=== PATIENT | male | born 1955 | race Caucasian/White ===

== ENCOUNTER 2018-06-30 17:45 | Inpatient (IN) | payer OTHER, MEDICARE ==
[~2018-06-30] VITALS: Ht 182.9 cm; Wt 155.6 kg
[~2018-06-30 17:45] MED LIST: ALBUTEROL2.5 MG/3 M; AMLODIPINE BESY10 M1; CLEOCIN HCL300 M1 PO; KEFLEX500 M1 PO; LISINOPRIL-HCT1 EACH PO; PROAIR HFA8.5 GM PO; PROBIOTIC1 EACH PO; SPIRIVA18 MCG INH; SULFAMETHOXAZO1 EAC1 PO; SYMBICORT 16010.2 GM INH
--- NOTE | 2018-06-30 18:17 | ED CARDIAC/CP/PALPITATIONS ---
History of Present Illness General Chief Complaint: Palpitations Stated Complaint: BIBA RAPID AFIB Source: patient Exam Limitations: no limitations Vital Signs & Intake/Output Vital Signs & Intake/Output Vital Signs Date Time Temp Pulse Resp B/P B/P Pulse O2 O2 Flow FiO2 Mean Ox Delivery Rate 07/01 2043 114 114/82 07/01 204 113 114/82 07/01 1854 Nasal 2.0L Cannula 07/01 1735 98.0 92 24 113/78 95 Nasal 2.0L Cannula 07/01 1601 95 Nasal 2.0L Cannula 07/01 1346 96.7 92 18 108/84 07/01 0948 96.7 92 18 108/84 96 Nasal 2.0L Cannula 07/01 0915 98.2 81 22 122/72 07/01 0915 98.2 81 22 122/72 07/01 0737 98.2 81 22 94 Nasal 2.0L Cannula 07/01 0733 98.2 81 22 94 Nasal 2.0L Cannula 07/01 0700 98.2 81 22 122/72 07/01 0541 94 Nasal 2.0L Cannula 07/01 0531 98.0 92 22 122/72 98 Nasal 2.0L Cannula 07/01 0359 97.0 89 22 114/79 96 Nasal 2.0L Cannula 07/01 0355 96 Nasal 2.0L Cannula 07/01 0300 97.0 89 22 114/79 96 Nasal 2.0L Cannula 06/30 2224 98.2 104 26 126/72 96 Nasal 2.5L Cannula 06/30 2221 96 Nasal 2.0L Cannula 06/30 2216 97.6 104 18 130/82 ED Intake and Output 07/01 0000 06/30 1200 Intake Total 400 Output Total 1225 Balance -825 Intake, Oral 400 Output, Urine 1225 Patient 340 lb Weight Weight Reported by Patient Measurement Method Allergies Coded Allergies: Penicillins (Intermediate, Hives 07/08/17) Triage Note: PT BIBA FROM URGENT CARE WITH NEW ONSET RAPID AFIB. HX OF COPD, C/O 1-2 MONTHS INCREASING SOB. USING ALBUTEROL NEB Q4-6HRS X 1-2 MONTHS WITH NO IMPROVEMENT IN S/S. DENIES C/P OR PALP Triage Nurses Notes Reviewed? yes Onset: Gradual Duration: week(s): Timing: recent history Quality/Severity: moderate HPI: 63yo male with hx of HTN, COPD sent in by urgent care for rapid A. fib. Patient was seeking evaluation today for worsening dyspnea on exertion. Patient has been using nebulizer treatments without relief of his symptoms. He also has difficulty laying flat at night due to his dyspnea. 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 He reports chronic swelling to lower extremities. He denies chest pain, dizziness, lightheadedness, abdominal pain, cough. (Savannah Ochoa) Reconcile Medications Albuterol Sulfate (Proair Hfa) 90 MCG HFA.AER.AD 2 PUFF PO Q4-6 PRN SHORTNESS OF BREATH (Reported) Albuterol Sulfate 2.5 MG/3 ML (0.083 %) VIAL.NEB 1 VIAL Q6 PRN LUNG (Reported ) Amlodipine Besylate 10 MG TABLET 1 TAB DAILY BLOOD PRESSURE (Reported) Budesonide/Formoterol Fumarate (Symbicort 160-4.5 Mcg Inhaler) 160 MCG-4.5 MCG/ ACTUATION HFA.AER.AD 2 PUF INH BID LUNG (Reported) Lisinopril/Hydrochlorothiazide (Lisinopril-Hctz 20-12.5 MG Tab) 20 MG-12.5 MG TABLET 2 TAB PO DAILY BP (Reported) Tiotropium [place] (Spiriva) 18 MCG CAP.W.DEV 1 CAP INH DAILY LUNG (Reported) (Ras Stahl DO) Past History Travel History Traveled to [place] past 21 day No Medical History Any Pertinent Medical History? 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 No (Savannah Ochoa) Review of Systems Review of Systems Constitutional: Reports: no symptoms. EENTM: Reports: no symptoms. Respiratory: Reports: see HPI. Cardiovascular: Reports: see HPI. GI: Reports: no symptoms. Genitourinary: Reports: no symptoms. Musculoskeletal: Reports: no symptoms. Skin: Reports: no symptoms. Neurological/Psychological: Reports: no symptoms. Hematologic/Endocrine: Reports: no symptoms. Immunologic/Allergic: Reports: no symptoms. All Other Systems: Reviewed and Negative (Candice BYRD,Savannah Bello) Physical Exam Physical Exam General Appearance: well developed/nourished, no apparent distress, alert, awake Head: atraumatic, normal appearance Eyes: Bilateral: normal appearance. Ears, Nose, Throat: hearing grossly normal Neck: normal inspection, supple, full range of motion Respiratory: normal breath sounds, no respiratory distress, lungs clear Cardiovascular: tachycardia, irregularly irregular Peripheral Pulses: 2+ radial (R), 2+ radial (L) Gastrointestinal: normal bowel sounds, soft, non-tender, no organomegaly Back: normal inspection, normal range of motion Extremities: 3+ pitting edema with deep purple skin discoloration to bilateral lower extremities Neurologic/Psych: awake, alert, oriented x 3 Skin: deep purple skin discoloration of lower extremities Core Measures ACS in differential dx? Yes CVA/TIA Diagnosis No Sepsis Present: No Sepsis Focused Exam Completed? No (Savannah Ochoa) Progress Differential Diagnosis: AMI, atrial fibrillation, CHF/pulm edema, myocarditis, pericarditis, pneumonia, PSVT, pulmonary embolism, unstable angina Plan of Care: Orders Procedure Date/time Status PARTIAL THROMBOPLASTIN TIME 07/02 0230 Active Regular Diet 07/01 B Active RT: Reevaluation 07/01 2024 Active RT: Evaluation 07/01 2024 Active Heparin Drip- AFIB/FLUTTER/PE/ 07/01 1936 Active PARTIAL THROMBOPLASTIN TIME 07/01 1830 Complete Change service to 07/01 1152 Active PARTIAL THROMBOPLASTIN TIME 07/01 0930 Complete TROPONIN LEVEL 07/01 0900 Complete EKG 07/01 0900 Active ECHOCARDIOGRAM 07/01 0800 Active Weight 07/01 0346 Active Teach/Educate 07/01 034 Active Pain Treatment and Response 07/01 034 Active Nutritional Intake, Monitor 07/01 034 Active Isolation 07/01 034 Active Patient Care Conference 07/01 034 Active TROPONIN LEVEL 07/01 0300 Complete MAGNESIUM 07/01 0300 Complete LIPID PANEL 07/01 0300 Complete GLYCOSYLATED HGB 07/01 0300 Complete D-DIMER 07/01 0300 Complete CBC WITHOUT DIFFERENTIAL 07/01 0300 Complete BASIC ELECTROLYTES PLUS BUN&CR 07/01 030 Complete EKG 07/01 0300 Active TRC EVALUATION (GEN) 07/01 0235 Active OXYGEN SETUP (GEN) 07/01 0235 Active Pathway - chart 07/01 0235 Active House Staff 07/01 0235 Active VTE Mechanical Prophylaxis 07/01 UNK Active Activity/Ambulation 07/01 UNK Active Patient Data 06/30 2301 Active Saline Lock 06/30 2215 Active Misc Message 06/30 2215 Active ED Holding Orders 06/30 2215 Active Admit to inpatient 06/30 2215 Active Vital Signs 06/30 2215 Active Code Status 06/30 2215 Active Intake & Output 06/30 192 Active Current Medications Sig/Jorge Start time Last Medication Dose Stop Time Status Admin Diltiazem HCl 60 MG Q8 07/01 2200 AC 07/01 (Cardizem) 2042 Apixaban 5 MG BID 07/01 2100 AC 07/01 (Eliquis) 204 Amlodipine Besylate 10 MG DAILY 07/01 0900 AC 07/01 (Norvasc) 0915 Budesonide/ 2 PUF BID 07/01 0900 AC 07/01 Formoterol Fumarate 0915 (Symbicort) Hydrochlorothiazide 25 MG DAILY 07/01 0900 AC 07/01 (Hydrodiuril) 0915 Lisinopril 40 MG DAILY 07/01 0900 AC 07/01 (Prinivil) 0915 Tiotropium [place] 1 PUF DAILY 07/01 0900 AC 07/01 (Spiriva) 0915 Acetaminophen 650 MG Q6P PRN 07/01 0245 AC (Tylenol) Albuterol Sulfate 2 PUF Q4-6 PRN 07/01 0215 AC (Ventolin) Albuterol Sulfate 3 ML Q6 PRN 07/01 0215 AC 07/01 (Proventil) 1601 Metoprolol Tartrate 25 MG Q8 06/30 2212 AC 07/01 (Lopressor) 2043 Laboratory Tests 07/01/18 1835: APTT 119 *H 07/01/18 0923: Troponin I < 0.01, APTT 39 H 07/01/18 0310: Anion Gap 14, Estimated GFR 47 L, BUN/Creatinine Ratio 16.0, Hemoglobin A1c 6.3 H, Magnesium 2.1, Troponin I 0.02, Triglycerides 109, Cholesterol 102, LDL Cholesterol, Calc 47 L, HDL Cholesterol 34 L, Cholesterol/HDL Ratio 3, D-Dimer High Sensitivty 430 H, CBC w Diff NO MAN DIFF REQ, RBC 3.98 L, MCV 86.2, MCH 28.5, MCHC 33.0, RDW 14.1, MPV 10.0, Gran % 71.8, Lymphocytes % 16.5 L, Monocytes % 6.3, Eosinophils % 3.7, Basophils % 1.7, Absolute Granulocytes 5.9, Absolute Lymphocytes 1.4, Absolute Monocytes 0.5, Absolute Eosinophils 0.3, Absolute Basophils 0.1 The patient was seen and evaluated by Dr. Stahl. Patient is in rapid atrial fibrillation with heart rate between 120-130. Will initiate Cardizem IV 10 mg and IV Lasix. Labs and workup are pending. Chest x-ray is stable. Labs are significant for BNP of 2890. Heart rate has improved to low 100's following medications. Awaiting cardiology return page. Dr. Riley spoke with Dr. James dasilva telemetry admission. Diagnostic Imaging: Viewed by Me: Radiology Read. Discussed w/RAD: Radiology Read. CXR Impression: PATIENT: EDA MEDINA PRESENT AGE: 63 PATIENT ACCOUNT NO: [id number] : 53 LOCATION: [facility] ORDERING PHYSICIAN: Savannah BYRD SERVICE DATE: 06/30/18 EXAM TYPE: RAD - XRY- PORTABLE CHEST XRAY EXAMINATION: CHEST 1 VIEW CLINICAL INFORMATION: Atrial fibrillation. COMPARISON: July 2015. TECHNIQUE: An AP view of the chest is provided. FINDINGS: The cardiac silhouette is prominence in the setting of low lung volumes. There is mild interstitial prominence throughout both lungs. There is bibasilar airspace disease. The osseous structures are stable. IMPRESSION: Limited examination secondary to patient positioning and low lung volumes. There is the appearance of an increase in the cardiac silhouette since the prior exam, though this may be accentuated due to technique and low lung volumes. There is nonspecific bibasilar airspace disease. DICTATED BY: Niall Gonzalez MD DATE/TIME DICTATED:06/30/181831 CUSTOMER ADVISOR:BEATRICE DATE/TIME TRANSCRIBED:1831 CONFIDENTIAL, DO NOT COPY WITHOUT APPROPRIATE AUTHORIZATION. < Electronically signed in Other Vendor System> SIGNED BY: Niall Gonzalez MD 06/30/181841 Initial ED EKG: atrial fibrillation @119bpm, LBBB, nonspecific ST changes Prior EKG: changed (Savannah Ochoa) Departure Departure Disposition: STILL A PATIENT Condition: Stable Clinical Impression Primary Impression: New onset a-fib Secondary Impressions: CHF (congestive heart failure) Referrals: Lauri Montano APRN (PCP/Family) Departure Forms: Customer Survey General Discharge Information Admission Note Spoke With: Destiny Ramirez MD Documentation of Exam: Documentation of any treatments & extenuating circumstances including Concerns Regarding Discharge (functional status, medication knowledge or non-compliance, living conditions, etc.) that warrant an admission rather than observation: [ Patient has new onset atrial fibrillation requiring rate control medications, possible IV heparin, cardiology consult, volume overload with likely CHF requiring IV diuresis, premature discharge medically unsafe] (Savannah Ochoa) PA/SILVER MINER Co-Sign Statement Statement: ED Attending supervision documentation- [X] I saw and evaluated the patient. I have also reviewed all the pertinent lab results and diagnostic results. I agree with the findings and the plan of care as documented in the PA's/SILVER MINER's documentation. [] I have reviewed the ED Record and agree with the PA's/SILVER MINER's documentation. [] Additions or exceptions (if any) to the PAs/SILVER MINER's note and plan are summarized below: [] Patient with severe lower extremity edema, new onset atrial fibrillation. I saw and personally examined the patient. No chest pain. IV Cardizem was given. (Ras Stahl DO) PA/SILVER MINER Co-Sign Statement Statement: ED Attending supervision documentation- x] I saw and evaluated the patient. I have also reviewed all the pertinent lab results and diagnostic results. I agree with the findings and the plan of care as documented in the PA's/SILVER MINER's documentation. 06/30/18, 22:10... pt with shortness of breath, new onset afib, merits monitoring , med management, cards eval Mary. [] I have reviewed the ED Record and agree with the PA's/SILVER MINER's documentation. [] Additions or exceptions (if any) to the PAs/SILVER MINER's note and plan are summarized below: [] (Osvaldo CALLEJAS,Zachariah Knox) Critical Care Note Critical Care Note Critical Care Time: non-applicable (Candice BYRD,Savannah Bello) Critical Care Note Critical Care Time: 30-74 min (Osvaldo CALLEJAS,Zachariah Knox)
[2018-06-30 18:20] LABS: ABSOLUTE BASOPHIL COUNT 0 /CUMM (0.0-0.2); ABSOLUTE EOSINOPHIL COUNT 0.2 /CUMM (0.0-0.7); ABSOLUTE GRANULOCYTE CT 7.2 /CUMM (1.4-6.5); ABSOLUTE LYMPH COUNT 1.6 /CUMM (1.2-3.4); ABSOLUTE MONOCYTE COUNT 0.5 /CUMM (0.10-0.60); BASOPHIL % 0.5 % (0.0-2.0); EOSINOPHIL % 1.8 % (0-5); GRANULOCYTE % 75.9 % (42.2-75.2); HEMATOCRIT 36.4 % (42-52); MEAN CORPUSCULAR HGB 27.7 PG (27.0-31.0); MEAN CORPUSCULAR HGB CONC 32.1 G/DL (33.0-37.0); MEAN CORPUSCULAR VOLUME 86.5 FL (80.0-94.0); MEAN PLATELET VOLUME 9.8 FL (7.4-10.4); PLATELET COUNT 230 /CUMM (130-400); RBC DISTRIBUTION WIDTH 14.5 % (11.5-14.5); RED BLOOD CELL CT 4.21 /CUMM (4.70-6.10); WHITE BLOOD CELL COUNT 9.5 /CUMM (4.8-10.8)
--- NOTE | 2018-06-30 18:42 | RADIOLOGY REPORT ---
EXAMINATION: CHEST 1 VIEW CLINICAL INFORMATION: Atrial fibrillation. COMPARISON: July 2015. TECHNIQUE: An AP view of the chest is provided. FINDINGS: The cardiac silhouette is prominence in the setting of low lung volumes. There is mild interstitial prominence throughout both lungs. There is bibasilar airspace disease. The osseous structures are stable. IMPRESSION: Limited examination secondary to patient positioning and low lung volumes. There is the appearance of an increase in the cardiac silhouette since the prior exam, though this may be accentuated due to technique and low lung volumes. There is nonspecific bibasilar airspace disease.
[2018-06-30 20:16] LABS: PT 12.4 SEC (9.4-12.5); PTT 29 SEC (25-37)
--- NOTE | 2018-07-01 00:56 | History & Physical ---
Shavon CALLEJASBasil 07/01/18 0055: General Information and HPI History of Present Illness: 63 year old man with past medical history of hypertension, asthma, COPD, obesity , renal mass, EtOH abuse, CKD, and TOM not on CPAP seen for evaluation of shortness of breath. Patient reported over the past two months having shortness of breath that has progressively worsened. He is unable to lay flat and has been sleeping in a recliner. Prior to this he could ambulate for a "while" without having to rest but now cannot walk more than 10 feet without being symptomatic. He went to an urgent care center for evaluation of this and was found to be tachycardic for which EMS was called and he was transferred to the [place] ED. Patient receive 10 mg of IV cardizem, 40 mg of IV lasix, duoneb, and started on oral metoprolol. He denied feeling any better despite these inteventions and is complaining of the same level of shortness of breath. Review of Systems He otherwise denies any headache, fever, chills, vision change, lightheadedness, dizziness, chest pain, palpitations, heartburn, cough, nausea, vomiting, diarrhea, constipation. Objective Vitals: Temp 97.2-98.2, HR 104-119, RR 18-16, BP 126-152/72-89, QyV039-92% on 2.5L Physical Exam -General: morbidly obese elderly man in no acute distress -HEENT: NCAT, PERRL, EOMI, anicteric sclera, MMM, nasal cannula in place -Neck: Supple, no JVD, trachea midline, no accessory respiratory muscle use -Cardio: Normal S1/S2, irregularly irregular, tachycardic -Pulm: Diminished bibasilar airflow without wheezing or rales -Abdomen: Soft, NT, ND, BS+ -Neuro: AAOx3, CN II-XII grossly intact -Ext: normal pulses, chronic venous stasis changes Labs / Imaging / Studies -CBC: WBC 9.5, Hgb 11.7, Hct 36.4, Plt 230 -BMP: Na 140, K 4.3, Cl 107, CO2 20, BUN 23, Cr 1.5, AG 12, Glu 114 -LFT: WNL -Misc: Mg 1.7, Trop I 0.01, BNP 2900, TSH 2.9, T4 1.39, INR 1.14 -Echo 05/13/14: LVEF 55% with mild/moderate LVH, moderate/severe Left atrial dilation -EKG: Atrial fibrillation with rapid ventricular response -CXR: * Limited examination secondary to patient positioning and low lung volumes. There is the appearance of an increase in the cardiac silhouette since the prior exam, though this may be accentuated due to technique and low lung volumes. There is nonspecific bibasilar airspace disease. Assessment 63 year old morbidly obese man with multiple medical problems with progressive shortness of breath found to be tachycardic at urgent care in new onset atrial fibrillation. Presently patient admits to being persistently short of breath despite several medications given in the ED. Vital signs are significant for a elevated heart rate. Physical exam demonstrates an irregularly irregular rhythm. Significant labs include creatinine 1.5, Mg 1.7, Troponin I 0.01, BNP 2900. EKG showed afib with RVR. CXR was technically difficult and limited. Clinically patient appears to be in new onset atrial fibrillation for an unknown amount of time; he very well may have been in and out over the past several months. The etiology may be structural secondary to his atrial dilation on past echocardiogram. He may have a tachycardia induced cardiomyopathy as the etiology of his shortness of breath. His CHADsVASc score is 2 for hypertension and age for which anticoagulation was started. Patient is being admitted to the telemetry floor for telemetry monitoring, rate control, anticoagulation, serial EKG/Troponin, echocardiogram, and cardiology consultation. Problem List -New Onset Atrial Fibrillation with Rapid Ventricular Response -Exertional shortness of breath, possibly tachycardia induced cardiomyopathy vs PE -Hypertension -Asthma -Morbid obesity -History of "renal mass" -History of EtOH dependence -CKD -TOM, not on CPAP Plan -Admit to telemetry -Telemetry monitoring -Supplemental oxygen, goal > 92%, taper as tolerated -Total respiratory care with Nebs PRN Q6H -CHADsVASc score:2 -Cardizem drip at 5 mL/h to heart rate <110 -Heparin drip -Metoprolol tartrate 25 mg p.o. every 8 hours -Continue home medications: Albuterol, amlodipine, symbicort, lisinopril, HCTZ, spiriva -Consult cardiology for atrial fibrillation -Check D-Dimer -Trend troponin / EKG until peak or three negative sets -Check Lipid panel, HbA1c -Pain control with acetaminophen -Regular diet -DVT PPx with heparin drip -FULL CODE Allergies/Medications Allergies: Coded Allergies: Penicillins (Intermediate, Hives 07/08/17) Home Med list Albuterol Sulfate (Proair Hfa) 90 MCG HFA.AER.AD 2 PUFF PO Q4-6 PRN SHORTNESS OF BREATH (Reported) Albuterol Sulfate 2.5 MG/3 ML (0.083 %) VIAL.NEB 1 VIAL Q6 PRN LUNG (Reported ) Amlodipine Besylate 10 MG TABLET 1 TAB DAILY BLOOD PRESSURE (Reported) Budesonide/Formoterol Fumarate (Symbicort 160-4.5 Mcg Inhaler) 160 MCG-4.5 MCG/ ACTUATION HFA.AER.AD 2 PUF INH BID LUNG (Reported) Lisinopril/Hydrochlorothiazide (Lisinopril-Hctz 20-12.5 MG Tab) 20 MG-12.5 MG TABLET 2 TAB PO DAILY BP (Reported) Tiotropium [place] (Spiriva) 18 MCG CAP.W.DEV 1 CAP INH DAILY LUNG (Reported) Past History Travel History Traveled to [place] past 21 day No Medical History Neurological: NONE EENT: NONE Cardiovascular: hypertension Respiratory: asthma, COPD Gastrointestinal: NONE Hepatic: NONE Renal: kidney mass Musculoskeletal: degen joint disease Psychiatric: NONE Endocrine: NONE Blood Disorders: NONE Cancer(s): 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 Exam & Diagnostic Data Last 24 Hrs of Vital Signs/I&O Vital Signs Date Time Temp Pulse Resp B/P B/P Pulse O2 O2 Flow FiO2 Mean Ox Delivery Rate 07/01 737 98.2 81 22 94 Nasal 2.0L Cannula 07/01 733 98.2 81 22 94 Nasal 2.0L Cannula 07/01 0541 94 Nasal 2.0L Cannula 07/01 531 98.0 92 22 122/72 98 Nasal 2.0L Cannula 07/01 359 97.0 89 22 114/79 96 Nasal 2.0L Cannula 07/01 355 96 Nasal 2.0L Cannula 07/01 0300 97.0 89 22 114/79 96 Nasal 2.0L Cannula 06/30 2224 98.2 104 26 126/72 96 Nasal 2.5L Cannula 06/30 2221 96 Nasal 2.0L Cannula 06/306 97.6 104 18 130/82 06/30 1856 97 Nasal 2.0L Cannula 06/30 1837 104 18 130/82 96 Nasal 2.0L Cannula 06/30 1834 97.6 119 18 152/89 06/30 1757 97.6 119 18 152/89 97 Nasal 2.0L Cannula Intake & Output 07/01 1600 07/01 0800 07/01 0000 Intake Total 400 Output Total 1150 1225 Balance -1150 -825 Intake, Oral 400 Output, Urine 1150 1225 Patient 154.221 kg 154.221 kg Weight Weight Reported by Patient Reported by Patient Measurement Method Assessment/Plan As Ranked By This Provider Problem List: 1. New onset a-fib Core Measures/Misc (08/18) Acute Coronary Syndrome ACS Diagnosis: No Congestive Heart Failure Congestive Heart Failure Diagnosis No Cerebrovascular Accident CVA/TIA Diagnosis: No VTE (View Protocol) VTE Risk Factors Age>40 No Mechanical VTE Prophylaxis d/t N/A MechProphylax Ordered No VTE Pharm Prophylaxis d/t NA PharmProphylax ordered Sepsis (View protocol) Sepsis Present: No If YES complete Sepsis Event Note If YES complete Sepsis Event Note Destiny Ramirez MD 07/01/182104: Core Measures/Misc (08/18) Sepsis (View protocol) If YES complete Sepsis Event Note If YES complete Sepsis Event Note Attending MD Review Statement Attending Statement Attending MD Statement: examined this patient, discuss w/resident/PA/SENIOR QUALITY TECHNICIAN, agreed w/resident/PA/SENIOR QUALITY TECHNICIAN Attending Assessment/Plan: This is a 63-year-old morbidly obese male admitted to the hospital with new onset atrial fibrillation with rapid ventricular response. He was placed on a Cardizem drip for rate control and will be transferred to telemetry for further monitoring. Given his elevated chads vas score he will be started on anticoagulation. A d-dimer was obtained but was appropriate when corrected for age therefore there is no indication to obtain a CTA of the chest. In addition patient will be placed on anticoagulation regardless. His exertional dyspnea is likely secondary to physical deconditioning morbid obesity and COPD. He will need outpatient follow-up with a steel division supervisor for a sleep study along with repeat pulmonary function testing. We will obtain an echocardiogram which will likely show evidence of pulmonary hypertension and possibly cardiomyopathy. Cardiology consultation will be placed in the morning.
[2018-07-01 03:19] LABS: ABSOLUTE BASOPHIL COUNT 0.1 /CUMM (0.0-0.2); ABSOLUTE EOSINOPHIL COUNT 0.3 /CUMM (0.0-0.7); ABSOLUTE GRANULOCYTE CT 5.9 /CUMM (1.4-6.5); ABSOLUTE LYMPH COUNT 1.4 /CUMM (1.2-3.4); ABSOLUTE MONOCYTE COUNT 0.5 /CUMM (0.10-0.60); BASOPHIL % 1.7 % (0.0-2.0); EOSINOPHIL % 3.7 % (0-5); GRANULOCYTE % 71.8 % (42.2-75.2); HEMATOCRIT 34.3 % (42-52); MEAN CORPUSCULAR HGB 28.5 PG (27.0-31.0); MEAN CORPUSCULAR VOLUME 86.2 FL (80.0-94.0); PLATELET COUNT 194 /CUMM (130-400); RBC DISTRIBUTION WIDTH 14.1 % (11.5-14.5); RED BLOOD CELL CT 3.98 /CUMM (4.70-6.10); WHITE BLOOD CELL COUNT 8.3 /CUMM (4.8-10.8)
[2018-07-01 03:59] VITALS: BP 114/79
--- NOTE | 2018-07-01 07:20 | PN- Housestaff ---
Subjective Follow-up For: Atrial fibrillation with RVR -newly diagnosed Complaints: SOB 1-2 months, BIBA for tachycardia Tele-Events Since Last Visit: In afib 90- 120 HR Subjective: patient continues to feel SOB, Dyspneic on lying flat on bed, no chest pain, no palpitations. No dizziness. C/o swelling of legs Review of Systems Constitutional: Reports: no symptoms, see HPI. EENTM: Reports: no symptoms. Cardiovascular: Reports: no symptoms. Respiratory: Reports: short of breath. Gastrointestinal: Reports: no symptoms. Genitourinary: Reports: no symptoms. Musculoskeletal: Reports: no symptoms. Skin: Reports: no symptoms. Neurological/Psychological: Reports: no symptoms. Hematologic/Endocrine: Reports: no symptoms. Immunologic/Allergic: Reports: no symptoms. Comments: History of Present Illness: 63 year old man with past medical history of hypertension, asthma, COPD, obesity , renal mass, EtOH abuse, CKD, and TOM not on CPAP seen for evaluation of shortness of breath. Patient reported over the past two months having shortness of breath that has progressively worsened. He is unable to lay flat and has been sleeping in a recliner. Prior to this he could ambulate for a "while" without having to rest but now cannot walk more than 10 feet without being symptomatic. He went to an urgent care center for evaluation of this and was found to be tachycardic for which EMS was called and he was transferred to the [place] ED. Patient receive 10 mg of IV cardizem, 40 mg of IV lasix, duoneb, and started on oral metoprolol. He denied feeling any better despite these inteventions and is complaining of the same level of shortness of breath. Objective Last 24 Hrs of Vital Signs/I&O Vital Signs Date Time Temp Pulse Resp B/P B/P Pulse O2 O2 Flow FiO2 Mean Ox Delivery Rate 07/01 948 96.7 92 18 108/84 96 Nasal 2.0L Cannula 07/01 915 98.2 81 22 122/72 07/01 0915 98.2 81 22 122/72 07/01 0737 98.2 81 22 94 Nasal 2.0L Cannula 07/01 0733 98.2 81 22 94 Nasal 2.0L Cannula 07/01 0700 98.2 81 22 122/72 07/01 0541 94 Nasal 2.0L Cannula 07/31 0531 98.0 92 22 122/72 98 Nasal 2.0L Cannula 07/01 0359 97.0 89 22 114/79 96 Nasal 2.0L Cannula 07/01 0355 96 Nasal 2.0L Cannula 07/01 0300 97.0 89 22 114/79 96 Nasal 2.0L Cannula 06/30 2224 98.2 104 26 126/72 96 Nasal 2.5L Cannula 06/30 2221 96 Nasal 2.0L Cannula 06/30 2216 97.6 104 18 130/82 06/30 1856 97 Nasal 2.0L Cannula 06/30 1837 104 18 130/82 96 Nasal 2.0L Cannula 06/30 1834 97.6 119 18 152/89 06/30 1757 97.6 119 18 152/89 97 Nasal 2.0L Cannula Intake & Output 07/01 1600 07/01 0800 07/01 0000 Intake Total 400 Output Total 1150 1225 Balance -1150 -825 Intake, Oral 400 Output, Urine 1150 1225 Patient 340 lb 340 lb Weight Weight Reported by Patient Reported by Patient Measurement Method Physical Exam General Appearance: Alert, Oriented X3, Cooperative Skin: No Rashes, No Breakdown Skin Temp/Moisture Exam: Cool/Dry HEENT: PERRLA, EOMI Neck: Supple, No JVD, No thryomegaly Lymphatic: Axillary nl, Cervical nl Cardiovascular: irregular, tachycardia Lungs: Clear to Auscultation Abdomen: Soft Neurological: Normal Speech, Strength at 5/5 X4 Ext, Normal Tone, Sensation Intact Current Medications: Current Medications Sig/Jorge Start time Last Medication Dose Route Stop Time Status Admin Acetaminophen 650 MG Q6P PRN 07/01 0245 AC PO Albuterol Sulfate 2 PUF Q4-6 PRN 07/01 0215 AC INH Albuterol Sulfate 3 ML Q6 PRN 07/01 0215 AC 07/01 INH 0541 Albuterol Sulfate 3 ML ONCE ONE 06/30 2215 DC 06/30 INH 06/30 2216 222 Amlodipine Besylate 10 MG DAILY 07/01 09 AC 07/01 PO 0915 Budesonide/ 2 PUF BID 07/01 09 AC 07/01 Formoterol Fumarate INH 0915 Diltiazem HCl 125 MG Q24H 07/01 0045 AC 07/01 Dextrose/Water 100 ML IV 0310 Diltiazem HCl 0 .STK-MED ONE 06/30 1831 DC .ROUTE Diltiazem HCl 10 MG ONCE ONE 06/30 1815 DC 06/30 IV 06/30 1816 183 Furosemide 0 .STK-MED ONE 06/30 1831 DC IV Furosemide 40 MG ONCE ONE 06/30 1815 DC 06/30 IV 06/30 181 183 Heparin Sodium/ 25,000 UNIT Q24H 07/01 0215 AC 07/01 Dextrose IV 0335 Dextrose/Water 500 ML Hydrochlorothiazide 25 MG DAILY 07/01 0900 AC 07/01 PO 0915 Ipratropium [place] 2.5 ML ONCE ONE 06/30 2215 DC 06/30 INH 06/30 2216 222 Lisinopril 40 MG DAILY 07/01 09 AC 07/01 PO 0915 Metoprolol Tartrate 0 .STK-MED ONE 06/30 2216 DC PO Metoprolol Tartrate 25 MG Q8 06/30 221 AC 07/01 PO 0700 Tiotropium [place] 1 PUF DAILY 07/01 09 AC 07/01 INH 0915 Last 24 Hrs of Lab/Russell Results Last 24 Hrs of Labs/Mics: Laboratory Tests 07/01/18 0923: Troponin I < 0.01, APTT 39 H 07/01/18309: Anion Gap 14, Estimated GFR 47 L, BUN/Creatinine Ratio 16.0, Hemoglobin A1c 6.3 H, Magnesium 2.1, Troponin I 0.02, Triglycerides 109, Cholesterol 102, LDL Cholesterol, Calc 47 L, HDL Cholesterol 34 L, Cholesterol/HDL Ratio 3, D-Dimer High Sensitivty 430 H, CBC w Diff NO MAN DIFF REQ, RBC 3.98 L, MCV 86.2, MCH 28.5, MCHC 33.0, RDW 14.1, MPV 10.0, Gran % 71.8, Lymphocytes % 16.5 L, Monocytes % 6.3, Eosinophils % 3.7, Basophils % 1.7, Absolute Granulocytes 5.9, Absolute Lymphocytes 1.4, Absolute Monocytes 0.5, Absolute Eosinophils 0.3, Absolute Basophils 0.1 06/30/181809: Anion Gap 12, Estimated GFR 47 L, BUN/Creatinine Ratio 15.3, Glucose 114 H, Calcium 9.0, Magnesium 1.9, Total Bilirubin 0.9, AST 34, ALT 48, Alkaline Phosphatase 62, Troponin I 0.01, Tmz-V-Aiboymmxbqs Pept 2890 H, Total Protein 6.8, Albumin 3.8, Globulin 3.0, Albumin/Globulin Ratio 1.3, TSH 2.900, Free T4 1.39, PT 12.4, INR 1.14, APTT 29, CBC w Diff NO MAN DIFF REQ, RBC 4.21 L, MCV 86.5, MCH 27.7, MCHC 32.1 L, RDW 14.5, MPV 9.8, Gran % 75.9 H, Lymphocytes % 16.3 L, Monocytes % 5.5, Eosinophils % 1.8, Basophils % 0.5, Absolute Granulocytes 7.2 H, Absolute Lymphocytes 1.6, Absolute Monocytes 0.5, Absolute Eosinophils 0.2, Absolute Basophils 0 Assessment/Plan Assessment: 63 year old man with past medical history of hypertension, asthma, COPD, obesity , renal mass, EtOH abuse, CKD, and TOM not on CPAP seen for evaluation of shortness of breath. Labs / Imaging / Studies -CBC: WBC 9.5, Hgb 11.7, Hct 36.4, Plt 230 -BMP: Na 140, K 4.3, Cl 107, CO2 20, BUN 23, Cr 1.5, AG 12, Glu 114 -LFT: WNL -Misc: Mg 1.7, Trop I 0.01, BNP 2900, TSH 2.9, T4 1.39, INR 1.14 -Echo 05/13/14: LVEF 55% with mild/moderate LVH, moderate/severe Left atrial dilation -EKG: Atrial fibrillation with rapid ventricular response -CXR: * Limited examination secondary to patient positioning and low lung volumes. There is the appearance of an increase in the cardiac silhouette since the prior exam, though this may be accentuated due to technique and low lung volumes. There is nonspecific bibasilar airspace disease. Problem List: 1. New onset a-fib 1)Newly diagnosed case of atrial fibrillation with rapid ventricular rate Patient admitted for telemetry monitoring Jimenez vasc score more than 2 patient started on heparin IV drip Cardizem 5 mL/h and metoprolol 25 mg po 8th hourly EKG within normal limits, troponin negative -Follow-up with cardiology 2)Dyspnea- Patient is a known case of asthma ,COPD -Chest x-ray suggestive of bibasilar airspace disease and the cardiac silhouette is enlarged -Patient is on total respiratory care and albuterol nebulization, Symbicort -Received 1 dose of ipratropium bromide inhalation -One dose of furosemide 40 mg IV given yesterday night 3) obstructive sleep apnea syndrome Patient was prescribed CPAP, but poor patient compliance due to ill fitting mask. 4) hypertension Treated with amlodipine, lisinopril, hydrochlorothiazide Continue the same 2. Dyspnea Pain Ratin Pain Location: n/a Pain Goal: Remain pain free Pain Plan: n/a Tomorrow's Labs & Rationales: none
[2018-07-01 09:41] LABS: PTT 39 SEC (25-37)
--- NOTE | 2018-07-01 11:21 | PN- Att Addend ---
Attending Addendum Attending Brief Note Patient seen and examined. 63-year-old male past medical history of COPD who used to follow-up with Dr. Nunez many years ago, obstructive sleep apnea has not been able to use the CPAP because of an ill fitting mask and hypertension. He is here with new onset rapid atrial fibrillation. We have him on IV Cardizem and IV heparin. Dr. Arce is scheduled to see him and echo is pending. He is requesting a consult with Dr. Nunez and I asked him to see the pt as well.
--- NOTE | 2018-07-01 19:09 | Cons- Cardiology ---
General Information and HPI Consulting Request Date of Consult: 07/01/18 Requested By: Shantal CALLEJAS,Tania Li History of Present Illness: Mr. Baum is a 63 year old male with history of hypertension, sleep apnea and COPD who presented to the ER for evaluation of severe shortness of breath accompanied by orthopnea. He has noted these symptoms for about six weeks and they have gradually progressed. He denies any cough, fever or chills. He does have leg swelling that tends to be chronic and his abdominal girth has increased. He otherwise denies chest pain, pressure, tigthness or lightheadedness. It should be noted that this patient was found in the ER to be in atrial fibrillation with slightly increased heart rate and he does have occasional palpitations although this is neither a new or prominent symptom. As far as the patient is aware he has never been in atrial fibrillation before. A prior echocardiogram from 2003 showed a normal EF of 55% with mild to moderate left atrial enlargement. Allergies/Medications Allergies: Coded Allergies: Penicillins (Intermediate, Hives 07/08/17) Home Med List: Albuterol Sulfate (Proair Hfa) 90 MCG HFA.AER.AD 2 PUFF PO Q4-6 PRN SHORTNESS OF BREATH (Reported) Albuterol Sulfate 2.5 MG/3 ML (0.083 %) VIAL.NEB 1 VIAL Q6 PRN LUNG (Reported ) Amlodipine Besylate 10 MG TABLET 1 TAB DAILY BLOOD PRESSURE (Reported) Budesonide/Formoterol Fumarate (Symbicort 160-4.5 Mcg Inhaler) 160 MCG-4.5 MCG/ ACTUATION HFA.AER.AD 2 PUF INH BID LUNG (Reported) Lisinopril/Hydrochlorothiazide (Lisinopril-Hctz 20-12.5 MG Tab) 20 MG-12.5 MG TABLET 2 TAB PO DAILY BP (Reported) Tiotropium [place] (Spiriva) 18 MCG CAP.W.DEV 1 CAP INH DAILY LUNG (Reported) Review of Systems Review of Systems: A review of systems is unremarkable. 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 Home Services at Home: None Smoking Status: Former Smoker ETOH Use: occasional use Exam & Diagnostic Data Vital Signs and I&O Vital Signs Date Time Temp Pulse Resp B/P B/P Pulse O2 O2 Flow FiO2 Mean Ox Delivery Rate 07/01 1854 Nasal 2.0L Cannula 07/01 1735 98.0 92 24 113/78 95 Nasal 2.0L Cannula 07/01 1601 95 Nasal 2.0L Cannula 07/01 1346 96.7 92 18 108/84 07/01 0948 96.7 92 18 108/84 96 Nasal 2.0L Cannula 07/01 0915 98.2 81 22 122/72 07/01 0915 98.2 81 22 122/72 07/01 0737 98.2 81 22 94 Nasal 2.0L Cannula 07/01 0733 98.2 81 22 94 Nasal 2.0L Cannula 07/01 0700 98.2 81 22 122/72 07/01 0541 94 Nasal 2.0L Cannula 07/01 0531 98.0 92 22 122/72 98 Nasal 2.0L Cannula 07/01 0359 97.0 89 22 114/79 96 Nasal 2.0L Cannula 07/01 0355 96 Nasal 2.0L Cannula 07/01 0300 97.0 89 22 114/79 96 Nasal 2.0L Cannula 06/30 2224 98.2 104 26 126/72 96 Nasal 2.5L Cannula 06/30 2221 96 Nasal 2.0L Cannula 06/30 2216 97.6 104 18 130/82 Intake & Output 07/01 1600 07/01 0807/01 0000 06/30 1600 06/30 0800 06/30 0000 Intake Total 400 Output Total 1150 1225 Balance -1150 -825 Intake, Oral 400 Output, Urine 1150 1225 Patient 340 lb 340 lb Weight Weight Reported by Patient Reported by Patient Measurement Method Physical Exam: General: WD/WN obses male in NAD; alert and oriented x 3 HEENT: NC/AT, PERRL, EOMI Neck: no JVD, no carotid bruit Heart: irregularly irregular without murmur Lungs: decreased air movement bilaterally, no crackles or wheezing Abdomen: soft, NT, +ve bowel sounds Extremities: 2+ leg edema with venous stasis changes Assessment/Plan Assessment/Plan * This patient has shortness of breath that is likely multifactorial and due to COPD, obesity, restrictive lung disease from his centripetal obesity and perhaps the new onset of atrial fibrillation. This atrial fibrillation is likely precipitated by either hypertension or increased RV pressures from his TOM. He should be on CPAP but does not like using it. His shortness of breath and atrial fibrillation may also be related to a pulmonary embolism especially in the light of his body habitus, inactivity and increased D-dimer. Evaluate for a PE by a CT angiogram. TFT's are normal. * Obtain an echocardiogram to assess for atrial enlargement and RV function as well as overall EF. * Begin Eliquis 5mg PO BID * Begin Cardizem 60mg TID for rate control. Consult Acknowledgment - Thank you for your consult request.
[2018-07-01 19:32] LABS: PTT 119 SEC (25-37)
[2018-07-02 06:40] VITALS: BP 120/76
--- NOTE | 2018-07-02 07:55 | PN- Housestaff ---
See Addendum Roman Gaston 07/02/18 0755: Subjective Follow-up For: Shortness of breath Complaints: a fib Tele-Events Since Last Visit: None Subjective: Patient is doing better on nasal cannula oxygen. denies any complaints. But admits to have shortness of breath upon ambulation. Denies any DVTs or clots. Wants to consider alternate options for sleep apnea management Review of Systems Constitutional: Reports: see HPI. Objective Last 24 Hrs of Vital Signs/I&O Vital Signs Date Time Temp Pulse Resp B/P B/P Pulse O2 O2 Flow FiO2 Mean Ox Delivery Rate 07/02 1449 97.9 119 20 134/70 95 Room Air 07/02 1442 125 134/70 07/02 1441 125 07/02 0901 120/76 07/02 0800 95 Nasal 2.0L Cannula 07/02 0755 94 Nasal 2.0L Cannula 07/02 0640 97.9 90 20 120/76 94 Nasal Cannula 07/02 0615 90 18 116/80 07/02 0556 90 18 116/80 07/02 0220 94 Nasal 2.0L Cannula 07/02 0000 97 Nasal 2.0L Cannula 07/01 2145 Nasal 2.0L Cannula 07/01 2043 114 114/82 07/01 2042 113 114/82 07/01 1854 Nasal 2.0L Cannula 07/01 1735 98.0 92 24 113/78 95 Nasal 2.0L Cannula Intake & Output 07/02 1600 07/02 0800 07/02 0000 Intake Total 480 120 150 Output Total Balance 480 120 150 Intake, Oral 480 120 150 Patient 351 lb Weight Weight Bed scale Measurement Method Physical Exam General Appearance: Alert, Oriented X3, Cooperative, No Acute Distress Cardiovascular: Regular Rate, No Murmurs Lungs: universally decreased breath sounds Abdomen: Normal Bowel Sounds, Soft, No Tenderness, No Hepatospenomegaly, No Masses, distended Neurological: Normal Speech, Strength at 5/5 X4 Ext, Normal Tone, Sensation Intact Extremities: LE edema Current Medications: Current Medications Sig/Jorge Start time Last Medication Dose Route Stop Time Status Admin Acetaminophen 650 MG Q6P PRN 07/01 0245 AC PO Albuterol Sulfate 3 ML TID 07/02 0900 AC 07/02 INH 0755 Albuterol Sulfate 2 PUF Q4-6 PRN 07/01 0215 AC INH Albuterol Sulfate 3 ML Q6 PRN 07/01 0215 AC 07/01 INH 1601 Amlodipine Besylate 10 MG DAILY 07/01 0900 AC 07/02 PO 0901 Apixaban 5 MG BID 07/01 2100 AC 07/02 PO 0900 Budesonide/ 2 PUF BID 07/01 0900 AC 07/02 Formoterol Fumarate INH 0902 Diltiazem HCl 60 MG Q8 07/01 2200 AC 07/02 PO 1442 Diltiazem HCl 125 MG Q24H 07/01 0045 DC 07/01 Dextrose/Water 100 ML IV 0310 Heparin Sodium/ 25,000 UNIT Q24H 07/01 0215 DC 07/01 Dextrose IV 0335 Dextrose/Water 500 ML Hydrochlorothiazide 25 MG DAILY 07/01 0900 AC 07/02 PO 0901 Lisinopril 40 MG DAILY 07/01 0900 AC 07/02 PO 0901 Metoprolol Tartrate 25 MG Q8 06/30 2212 AC 07/02 PO 1441 Tiotropium [place] 1 PUF DAILY 07/01 0900 AC 07/02 INH 0903 Last 24 Hrs of Lab/Russell Results Last 24 Hrs of Labs/Mics: Laboratory Tests 07/01/18 1835: APTT 119 *H Assessment/Plan Assessment: 63-year-old male PM Hx hypertension, COPD, asthma, TOM, stage II CKD, brought in by ambulance for increased shortness of breath, was diagnosed with atrial fibrillation and started on anticoagulation therapy for Jimenez vasc more than 2, Problem List: 1. Dyspnea Patient had dyspnea for the past 1 month and came in for increased shortness of breath. -Give a history of sleep apnea for which he was treated with CPAP, but noncompliant due to ill fitting mask -Pulmonology was consulted -Is currently on nasal cannula 2 L oxygen -Suspected of pulmonary embolism due to high d-dimer, morbid obesity, inactivity , and pulmonology consult advised CTA, echocardiogram - 2. New onset a-fib Patient was started on Cardizem an IV heparin and metoprolol 25 mg Continue medications for hypertension IV heparin was discontinued later on patient was switched to Eliquis Continue other medications Follow-up VQ scan and echo reports Pain Ratin Pain Location: None Pain Goal: Remain pain free Pain Plan: None Tomorrow's Labs & Rationales: None DVT/Prophylaxis: pharmacological Tania Murguia MD 07/02/18 1051: Attending MD Review Statement Attending Statement Attending MD Statement: examined this patient, discuss w/resident/PA/WORKERS COMPENSATION [place], agreed w/resident/PA/WORKERS COMPENSATION [place], reviewed EMR data (avail), discussed with nursing, discussed with case mgmt Attending Assessment/Plan: Appreciate pulmonary and cardiology follow-up. 63-year-old male past medical history of COPD obstructive sleep apnea and morbid obesity here with new onset atrial fibrillation. We have him on by mouth Cardizem and Eliquis. In view of the CKD with a GFR of 47 we are getting a VQ scan to rule out a PE and will follow up on results of the echo.
--- NOTE | 2018-07-02 08:36 | Cons- Pulmonary ---
General Information and HPI Consulting Request Date of Consult: 07/02/18 Requested By: Eugenia Reason for Consult: Asthma and sleep apnea History of Present Illness: Patient is 63-year-old with history of asthma treated with Spiriva Symbicort and sleep apnea is admitted with increasing shortness breath and found to be in atrial fibrillation associated with elevated BNP. Patient was last seen several years ago and found to have mild obstructive lung disease. He was found to have sleep apnea but is a nonadherent with nasal CPAP. A cardiac ultrasound and 2014 showed no evidence of pulmonary hypertension. He's had significant weight gain and increased lower extremity edema. Allergies/Medications Allergies: Coded Allergies: Penicillins (Intermediate, Hives 07/08/17) Home Med List: Albuterol Sulfate (Proair Hfa) 90 MCG HFA.AER.AD 2 PUFF PO Q4-6 PRN SHORTNESS OF BREATH (Reported) Albuterol Sulfate 2.5 MG/3 ML (0.083 %) VIAL.NEB 1 VIAL Q6 PRN LUNG (Reported ) Amlodipine Besylate 10 MG TABLET 1 TAB DAILY BLOOD PRESSURE (Reported) Budesonide/Formoterol Fumarate (Symbicort 160-4.5 Mcg Inhaler) 160 MCG-4.5 MCG/ ACTUATION HFA.AER.AD 2 PUF INH BID LUNG (Reported) Lisinopril/Hydrochlorothiazide (Lisinopril-Hctz 20-12.5 MG Tab) 20 MG-12.5 MG TABLET 2 TAB PO DAILY BP (Reported) Tiotropium [place] (Spiriva) 18 MCG CAP.W.DEV 1 CAP INH DAILY LUNG (Reported) Review of Systems Review of Systems Constitutional: Denies: chills, fever. Cardiovascular: Reports: edema, orthopena. Denies: chest pain. Respiratory: Reports: short of breath. Denies: cough, hemoptysis, sputum production, wheezing. GI: Denies: abdominal pain, diarrhea, melena. 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 Home Services at Home: None Smoking Status: Former Smoker ETOH Use: occasional use Exam & Diagnostic Data Last 24 Hrs of Vital Signs/I&O Vital Signs Date Time Temp Pulse Resp B/P B/P Pulse O2 O2 Flow FiO2 Mean Ox Delivery Rate 07/02 0640 97.9 90 20 120/76 94 Nasal Cannula 07/02 0615 90 18 116/80 07/02 0556 90 18 116/80 07/02 0220 94 Nasal 2.0L Cannula 07/02 0000 97 Nasal 2.0L Cannula 07/01 2145 Nasal 2.0L Cannula 07/013 114 114/82 07/01 2042 113 114/82 07/01 1854 Nasal 2.0L Cannula 07/01 1735 98.0 92 24 113/78 95 Nasal 2.0L Cannula 07/01 1601 95 Nasal 2.0L Cannula 07/01 1346 96.7 92 18 108/84 07/01 0948 96.7 92 18 108/84 96 Nasal 2.0L Cannula 07/01 0915 98.2 81 22 122/72 07/01 0915 98.2 81 22 122/72 Intake & Output 07/02 1600 07/02 0800 07/02 0000 Intake Total 120 150 Output Total Balance 120 150 Intake, Oral 120 150 Patient 351 lb Weight Weight Bed scale Measurement Method Oxygen saturation on 2 L 94% exam of his chest shows clear lung gaitan are no wheezes cardiac exam shows irregular rhythm abdomen is soft nontender obese extremities have chronic brawny edema Last 48 Hrs of Labs/Russell: Laboratory Tests 07/01/18 1835: APTT 119 *H 07/01/18 0923: Troponin I < 0.01, APTT 39 H 07/01/18 0310: Anion Gap 14, Estimated GFR 47 L, BUN/Creatinine Ratio 16.0, Hemoglobin A1c 6.3 H, Magnesium 2.1, Troponin I 0.02, Triglycerides 109, Cholesterol 102, LDL Cholesterol, Calc 47 L, HDL Cholesterol 34 L, Cholesterol/HDL Ratio 3, D-Dimer High Sensitivty 430 H, CBC w Diff NO MAN DIFF REQ, RBC 3.98 L, MCV 86.2, MCH 28.5, MCHC 33.0, RDW 14.1, MPV 10.0, Gran % 71.8, Lymphocytes % 16.5 L, Monocytes % 6.3, Eosinophils % 3.7, Basophils % 1.7, Absolute Granulocytes 5.9, Absolute Lymphocytes 1.4, Absolute Monocytes 0.5, Absolute Eosinophils 0.3, Absolute Basophils 0.1 06/30/18 1810: Anion Gap 12, Estimated GFR 47 L, BUN/Creatinine Ratio 15.3, Glucose 114 H, Calcium 9.0, Magnesium 1.9, Total Bilirubin 0.9, AST 34, ALT 48, Alkaline Phosphatase 62, Troponin I 0.01, Zum-U-Gkboprfgjso Pept 2890 H, Total Protein 6.8, Albumin 3.8, Globulin 3.0, Albumin/Globulin Ratio 1.3, TSH 2.900, Free T4 1.39, PT 12.4, INR 1.14, APTT 29, CBC w Diff NO MAN DIFF REQ, RBC 4.21 L, MCV 86.5, MCH 27.7, MCHC 32.1 L, RDW 14.5, MPV 9.8, Gran % 75.9 H, Lymphocytes % 16.3 L, Monocytes % 5.5, Eosinophils % 1.8, Basophils % 0.5, Absolute Granulocytes 7.2 H, Absolute Lymphocytes 1.6, Absolute Monocytes 0.5, Absolute Eosinophils 0.2, Absolute Basophils 0 Assessment/Plan Impression/Plan: 63-year-old with history of asthma mild airflow obstruction on pulmonary function testing and untreated sleep apnea admitted with increased shortness breath found to be in atrial fibrillation associated with elevated BNP. There is no evidence of bronchospasm. Patient has chronic kidney disease and would be hesitant about administrating dye for a CTA with concern over precipitating worsening renal failure Recommendations: Mild negative fluid balance monitoring his renal function. Repeat cardiac ultrasound. Arrangements will be made for outpatient pulmonary function tests repeat sleep study and treatment for sleep apnea. If concern persists regarding possible pulmonary emboli ventilation perfusion scan would be preferable in view of chronic kidney disease. Continue present bronchodilator regimen Consult Acknowledgment - Thank you for your consult request.
--- NOTE | 2018-07-02 10:55 | ECHOCARDIOGRAM REPORT ---
EDA MEDINA Age: 63 : 1955 Gender: M Exam Date: 07/01/2018 16:56 Exam Location: ER Ht (in): 72 Wt (lb): 340 BSA: 2.87 BP: 122 / 70 Ordering Physician: Basil Sands MD Referring Physician: Alejo Arce MD, PhD Technologist: Diann Manriquez [facility] Room Number: [id number] Indications: Afib/flutter Rhythm: Atrial fibrillation Technical Quality: good FINDINGS Left Ventricle Normal left ventricular size with moderate left ventricular hypertrophy. Moderate to severely decreased systolic function with severe anterior, apical septal and inferoseptal hypokinesis. The ejection fraction is visually estimated at 25%. Right Ventricle The right ventricle is normal in size and function. Right Atrium The right atrium is mildly enlarged. Left Atrium The left atrium is markedly enlarged. The interatrial septum is intact. Mitral Valve The mitral valve is normal in structure and function. There is mild to moderate mitral regurgitation. Aortic Valve Mildly thickened and sclerotic aortic valve with mild stenosis. There is no aortic regurgitation. Tricuspid Valve The tricuspid valve is normal in structure and function. There is mild tricuspid regurgitation. Pulmonary artery systolic pressure is mildly elevated to 40mmHg. Pulmonic Valve Structurally normal pulmonic valve. There is no pulmonic regurgitation. Pericardium Normal pericardium with small effusion. No pleural effusion. Great Vessels Normal aortic root dimension. The aortic arch and great vessels are well seen and are normal. CONCLUSIONS 1. Moderate to severely decreased EF of 25% with regional wall motion abnormalities as described above. 2. Moderate left ventricular hypertrophy. 3. Mild right atrial enlargement. Markedly enlarged left atrium. 4. Mild to moderate mitral regurgitation. 5. Mild tricuspid regurgitation. 6. Mild aortic stenosis. 7. Mild pulmonary hypertension. 8. Small pericardial effusion. Alejo Arce M.D. (Electronically Signed) Final Date: 02 July 2018 10:53 MEASUREMENTS (Male / Female) Normal Values 2D ECHO LV Diastolic Diameter PLAX 5.9 cm 4.2 - 5.9 / 3.9 - 5.3 cm LV Systolic Diameter PLAX 4.5 cm 2.1 - 4.0 cm LV Fractional Shortening PLAX 23.7 % 25 - 46 % LV Ejection Fraction 2D Teich 46.6 % IVS Diastolic Thickness 1.6 cm LVPW Diastolic Thickness 1.6 cm LV Relative Wall Thickness 0.5 RV Internal Dim ED PLAX 3.8 cm 1.9 - 3.8 cm LVOT Diameter 1.9 cm Aortic Root Diameter 3.2 cm LA Systolic Diameter LX 5.2 cm 3.0 - 4.0 / 2.7 - 3.8 cm LV Ejection Fraction MOD BP 36.8 % >= 55 % LV Diastolic Length 4C 8.6 cm 6.9 - 10.3 cm LV Diastolic Area 4C 37.0 cm LV Diastolic Volume MOD 4C 132.0 cm LV Ejection Fraction MOD 4C 37.9 % LV Stroke Volume MOD 4C 50.0 cm LV Systolic Length 4C 8.1 cm LV Systolic Area 4C 28.0 cm LV Systolic Volume MOD 4C 82.0 cm LV Ejection Fraction MOD 2C 37.6 % LV Diastolic Volume 4C AL 135.9 cm 85 - 139 / 69 - 109 cm LV Systolic Volume 4C AL 82.1 cm LV Ejection Fraction 4C AL 39.6 % LV Stroke Volume 4C AL 53.9 cm LV Ejection Fraction 2C AL 38.7 % LA Volume 110.0 cm 18 - 58 / 22 - 52 cm Ascending Aorta Diameter 3.6 cm DOPPLER AV Peak Velocity 152.0 cm/s AV Peak Gradient 9.2 mmHg AV Mean Velocity 103.0 cm/s AV Mean Gradient 5.0 mmHg AV Velocity Time Integral 27.0 cm LVOT Peak Velocity 97.8 cm/s LVOT Peak Gradient 3.8 mmHg LVOT Mean Velocity 63.3 cm/s LVOT Mean Gradient 2.0 mmHg LVOT Velocity Time Integral 17.1 cm LVOT Stroke Volume 48.5 cm AV Area Cont Eq vti 1.8 cm AV Area Cont Eq pk 1.8 cm MV Peak Velocity 145.0 cm/s MV Peak Gradient 8.4 mmHg MV Mean Velocity 65.7 cm/s MV Mean Gradient 2.0 mmHg Mitral E Point Velocity 130.7 cm/s MV PHT Velocity 149.0 cm/s MV Deceleration [place] 529.0 cm/s MV Pressure Half Time 84.5 ms MV Area PHT 2.6 cm MV Deceleration Time 120.5 ms TR Peak Velocity 273.0 cm/s TR Peak Gradient 29.8 mmHg Right Atrial Pressure 10.0 mmHg Pulmonary Artery Systolic Pressure 39.8 mmHg Right Ventricular Systolic Pressure 39.8 mmHg PV Peak Velocity 105.0 cm/s PV Peak Gradient 4.4 mmHg PV Mean Velocity 74.6 cm/s PV Mean Gradient 3.0 mmHg PV Velocity Time Integral 21.8 cm LV E' Lateral Velocity 9.5 cm/s Mitral E to LV E' Lateral Ratio 13.8 LV E' Septal Velocity 5.6 cm/s Mitral E to LV E' Septal Ratio 23.5
[2018-07-02 14:49] VITALS: BP 134/70
--- NOTE | 2018-07-02 16:32 | NUCLEAR MEDICINE REPORT ---
EXAMINATION: NM LUNG SCAN V/Q CLINICAL INFORMATION: Shortness of breath, edema. COMPARISON: Chest x-ray 06/30/2018. TECHNIQUE: 8.9 mCi xenon-133 aerosol and technetium MAA 3.8 mCi intravenous. Imaging in various obliquities over the lung gaitan. FINDINGS: The ventilation images are within normal limits. Wash-in and washout are unremarkable. The perfusion imaging is felt to match the ventilation imaging. No convincing evidence for a mismatch here. Mildly heterogeneous perfusion and probable enlarged heart which is reviewed on the chest film. IMPRESSION: Low probability for pulmonary embolism. Chance of PE is 20% or less. Probable cardiomegaly.
--- NOTE | 2018-07-02 17:45 | PN- Cardiology ---
Subjective Subjective: * Breathing is improved but not yet ideal. * The patient's echo shows a low EF. * atrial fibrillation with increased heart rate. Objective Vital Signs and I&Os Vital Signs Date Time Temp Pulse Resp B/P B/P Pulse O2 O2 Flow FiO2 Mean Ox Delivery Rate 07/02 1701 92 Room Air Room Air 07/02 1449 97.9 119 20 134/70 95 Room Air 07/02 1442 125 134/70 07/02 1441 125 / 0901 120/76 07/02 0800 95 Nasal 2.0L Cannula 07/02 0755 94 Nasal 2.0L Cannula 07/02 0640 97.9 90 20 120/76 94 Nasal Cannula 07/02 0615 90 18 116/80 07/02 0556 90 18 116/80 07/02 0220 94 Nasal 2.0L Cannula 07/02 0000 97 Nasal 2.0L Cannula 07/01 2145 Nasal 2.0L Cannula 07/01 2043 114 114/82 07/01 2042 113 114/82 07/01 1854 Nasal 2.0L Cannula Intake & Output 07/02 1600 07/02 0800 07/02 0000 07/01 1600 07/01 0800 07/01 0000 Intake Total 480 120 150 400 Output Total 1150 1225 Balance 480 120 150 -1150 -825 Intake, Oral 480 120 150 400 Output, Urine 1150 1225 Patient 351 lb 340 lb 340 lb Weight Weight Bed scale Reported by Patient Reported by Patient Measurement Method Physical Exam: General: WD/WN obses male in NAD; alert and oriented x 3 HEENT: NC/AT, PERRL, EOMI Neck: no JVD, no carotid bruit Heart: irregularly irregular without murmur Lungs: decreased air movement bilaterally, no crackles or wheezing Abdomen: soft, NT, +ve bowel sounds Extremities: 2+ leg edema with venous stasis changes Assessment/Plan Assessment/Plan * This patient has shortness of breath that is likely multifactorial and due to COPD, obesity, restrictive lung disease from his centripetal obesity, atrial fibrillation and a low EF. He has evidence of a cardiomyopathy that may be related to tachycardia from atrial fibrillation although ischemia needs to be ruled out. This atrial fibrillation is likely precipitated by either hypertension or increased RV pressures from his TOM. He should be on CPAP but does not like using it. * Continue Eliquis 5mg PO BID * Discontinue HCTZ and begin Lasix 20mg daily. Increase Cardizem to 120mg BID for rate control. Continue telemetry? Yes
[2018-07-02 22:13] VITALS: BP 136/74
[2018-07-03 05:49] VITALS: BP 104/84
[2018-07-03 06:50] VITALS: BP 118/70
--- NOTE | 2018-07-03 07:13 | PN- Housestaff ---
Roman Gaston 07/03/18 0713: Subjective Follow-up For: SOB Complaints: pain scale (0-10) (SOB) Subjective: Patient continues to feel short of breath especially on ambulation. He said that his saturations are above 95% without oxygen during ambulation but complains of short of breath during ambulation. increased use of nebulization. Patoient is off oxygen since 11 am yesterday. Review of Systems Constitutional: Reports: see HPI. Objective Last 24 Hrs of Vital Signs/I&O Vital Signs Date Time Temp Pulse Resp B/P B/P Pulse O2 O2 Flow FiO2 Mean Ox Delivery Rate 07/03 0814 77 138/64 07/03 0814 77 138/64 07/03 0650 98.3 80 20 118/70 95 Room Air 07/03 0550 83 104/84 07/03 0549 83 104/84 07/03 0242 94 Room Air 07/03 0000 Room Air 07/02 2213 98.3 88 20 136/74 97 Room Air 07/02 2202 94 Room Air Room Air 07/02 2129 98 112/80 07/02 1701 92 Room Air Room Air 07/02 1600 Room Air 07/02 1449 97.9 119 20 134/70 95 Room Air 07/02 1442 125 134/70 / 1441 125 08/01 0901 120/76 Intake & Output 07/03 1600 02 0800 07/03 0000 Intake Total 120 350 Output Total Balance 120 350 Intake, Oral 120 350 Number 1 Bowel Movements Patient 348 lb Weight Weight Bed scale Measurement Method Physical Exam General Appearance: Alert (morbidly obese) Skin: No Rashes (skin changes seen in LE) Cardiovascular: Regular Rate, No Murmurs Lungs: decreased air flow Abdomen: Normal Bowel Sounds (distended) Neurological: Normal Speech, Strength at 5/5 X4 Ext, Normal Tone, Sensation Intact Extremities: No Clubbing (edema in the LE , ) Current Medications: Current Medications Sig/Jorge Start time Last Medication Dose Route Stop Time Status Admin Acetaminophen 650 MG Q6P PRN 07/01 0245 AC PO Albuterol Sulfate 3 ML TID 07/02 0900 AC 07/03 INH 0843 Albuterol Sulfate 2 PUF Q4-6 PRN 07/01 0215 AC INH Albuterol Sulfate 3 ML Q6 PRN 07/31 0215 AC 07/01 INH 1601 Amlodipine Besylate 10 MG DAILY 07/01 0900 AC 07/03 PO 0814 Apixaban 5 MG BID 07/01 2100 AC 07/03 PO 0814 Budesonide/ 2 PUF BID 07/01 09 AC 07/03 Formoterol Fumarate INH 0811 Diltiazem HCl 120 MG BID 07/02 2100 AC 07/03 PO 0819 Diltiazem HCl 60 MG Q8 07/01 2200 DC 07/02 PO 1442 Furosemide 20 MG DAILY 07/03 900 AC 07/03 PO 0814 Hydrochlorothiazide 25 MG DAILY 07/01 09 DC 07/02 PO 0901 Lisinopril 40 MG DAILY 07/01 900 AC 07/03 PO 0814 Metoprolol Tartrate 25 MG Q8 06/30 2212 AC 07/03 PO 0550 Tiotropium [place] 1 PUF DAILY 07/01 09 AC 07/03 INH 0809 Last 24 Hrs of Lab/Russell Results Last 24 Hrs of Labs/Mics: Laboratory Tests 07/03/18 0610: Anion Gap 10, Estimated GFR 55 L, BUN/Creatinine Ratio 15.4 Assessment/Plan Assessment: Patient is a 63-year-old male, who came to the ED with complaints of shortness of breath for the past month. He was found to have atrial fibrillation on EKG with a rapid ventricular rate. He also has lower extremity edema. He was treated with furosemide 20 mg, IV heparin, Cardizem 5 mL/h and metoprolol 25 mg. He also received total respiratory care, Problem List: 1. CHF (congestive heart failure) Patient is a 63-year-old male, who came to the ED with complaints of shortness of breath for the past month. He was found to have atrial fibrillation on EKG with a rapid ventricular rate. He also has lower extremity edema He was treated with furosemide, IV heparin, Cardizem 5 mL/h and metoprolol 25 mg . Continue negative fluid balance. Patient is off oxygen and is saturating well Ejection fraction is 25% with mitral regurgitation Dr. Arce advised in his cardiology consult yesterday to switch hydrochlorothiazide to Lasix and he will likely needed a higher dose of Lasix . So he is on Lasix 40 mg per oral, STEVE inhibitors, beta-luis enrique Post discharge cardiac rehabilitation outpatient advised. Outpatient follow-up for sleep apnea evaluation and management advised. Follow-up cardiology progress note 2. New onset a-fib Continue Cardizem, metoprolol, Eliquis 3. Dyspnea -Pulmonology jodee d PFT showed only a mild obstructive lung disease -outpatient sleep styudy advised Continue Symbicort and albuterol 4. TOM (obstructive sleep apnea) Advised outpatient sleep study Pain Ratin Pain Location: none Pain Goal: Remain pain free Pain Plan: none Tomorrow's Labs & Rationales: bep DVT/Prophylaxis: mechanical (eliquis) Shantal CALLEJAS,Tania 07/03/18 0934: Attending MD Review Statement Attending Statement Attending MD Statement: examined this patient, discuss w/resident/PA/CHANGE MANAGEMENT ANALYST, agreed w/resident/PA/CHANGE MANAGEMENT ANALYST, reviewed EMR data (avail), discussed with nursing, discussed with case mgmt, reviewed images Attending Assessment/Plan: Patient continues to be short of breath. He is off oxygen. His echo results are noted and his EF is 25%. I spoke to Dr. Arce and his diuretic was changed yesterday from hydrochlorthiazide to Lasix and he likely needs a higher dose of the Lasix. He is on an STEVE and a beta-luis enrique. At this point the question will be workup of this systolic heart failure questionable ischemic and risk stratification for the same.
--- NOTE | 2018-07-03 07:18 | PN- Student ---
Subjective Subjective: Pt was seen and examined at bedside. He complained of dyspnea at rest and increasing dyspnea with ambulation. He says this is slightly better than on admission, but only if he uses the nebulizer treatments q4hrs. At home he was using them q8hrs. He was taken off nasal canula yesterday, but doesn't feel like his breathing has changed since then. He denies headahce, palpitations, chest pain, nausea, vomiting, abdominal pain, leg pain. Last BM was yesterday. He is ambulating only to the bathroom with difficulty d/t SOB. Objective Objective: Vital Signs Date Time Temp Pulse Resp B/P B/P Pulse O2 O2 Flow FiO2 Mean Ox Delivery Rate 07/03 0650 98.3 80 20 118/70 95 Room Air 07/03 0550 83 104/84 07/03 0549 83 104/84 07/03 0242 94 Room Air 07/03 0000 Room Air 07/02 2213 98.3 88 20 136/74 97 Room Air 07/02 2202 94 Room Air Room Air 07/02 2129 98 112/80 07/02 1701 92 Room Air Room Air 07/02 1600 Room Air 07/02 1449 97.9 119 20 134/70 95 Room Air 07/02 1442 125 134/70 07/02 1441 125 08/ 0901 120/76 07/02 0800 95 Nasal 2.0L Cannula 07/02 0755 94 Nasal 2.0L Cannula Tele: Afib, rates from 90s to 150s PE: Gen - NAD but breathing heavily, speaking in complete sentences with little difficulty Neuro - AOx4 CV - irregularly irregular Pulm - decreased breath sounds throughout, no use of accessory muscles to breathe Abd - +BS, obese, nontender Ext - 3+ pitting edema to the shins, compression leg stockings in place, DP/PT 1 + BL, skin of legs is dry and flaking Results Results: Laboratory Tests 07/03/18 0610: Anion Gap 10, Estimated GFR 55 L, BUN/Creatinine Ratio 15.4 VQ Scan 07/02/18 Low probability for pulmonary embolism. Chance of PE is 20% or less. Probable cardiomegaly. Echo 07/01/18 1. Moderate to severely decreased EF of 25% with regional wall motion abnormalities as described above. 2. Moderate left ventricular hypertrophy. 3. Mild right atrial enlargement. Markedly enlarged left atrium. 4. Mild to moderate mitral regurgitation. 5. Mild tricuspid regurgitation. 6. Mild aortic stenosis. 7. Mild pulmonary hypertension. 8. Small pericardial effusion. CXR 06/30/18 Limited examination secondary to patient positioning and low lung volumes. There is the appearance of an increase in the cardiac silhouette since the prior exam, though this may be accentuated due to technique and low lung volumes. There is nonspecific bibasilar airspace disease. Assessment/Plan Assessment: Pt is a 63yom w/ PMH significant for HTN, COPD on 2L at home, asthma, untreated TOM, and CKD stage 2. He presented to the ED 4 days ago with SOB and was found to have new onset Afib with RVR. Trops were negative. Ddimer was elevated. Pro BNP was elevated. ECHO from 07/01/18 showed EF <25% with regional hypokinesis of the L ventricle along with cardiomegaly. VQ scan was performed yesterday, rather than CTA pulm d/t CKD stage 2, which indicated low probability for PE. Pt continues on cardizem and metoprolol for rate control. Problem List/Plan 1. Dyspnea * Pt's dyspnea suspected to be due to multiple factors including his COPD, obesity, restrictive lung disease, Afib, and cardiomyopathy. At this time, PE has been r/o with a VQ scan and we will continue to tx for CHF exascerbation. * At this time, patient seems to have increasing need for albuterol nebs. This is likely due to decompensation of CHF as his EF was <25% on ECHO. * Pul recommends repeat ECHO. PFTs and sleep study can be repeated outpatient after discharge. * F/u Dr. Nunez. 2. Afib * Pt's afib which continues on tele with rates from 90s to 150s likely d/t atrial dilation which was demonstrated on ECHO. Ischemia must be ruled out sherice in the setting of patient's poor EF and tachycardia which could decrease coronary perfusion. * Continue cardizem 120 BID PO and metoprolol 25mg TID for rate control. * Continue lasix 20mg PO daily as per cardio. Consider increasing lasix dose due to pt's high BMI. 3. HTN * Continue amlodipine, lisinopril. 4. TOM * Outpatient sleep study. 5. COPD and asthma * Continue spiriva and albuterol. 6. Stage 2 CKD * Creatinine is downtrending and eGFR is 55 today. Stable. Continue lisinopril. Diet: Regular DVT: eloquis Code: full
--- NOTE | 2018-07-03 08:46 | PN- Pulmonary ---
Subjective HPI/Critical Care Issues: Patient is comfortable on room air though continues to have shortness of breath. He is diuresed 1 L and creatinine has improved. There is no evidence of pulmonary emboli. Note pulmonary function test show only mild obstructive lung disease Objective Current Medications: Current Medications Sig/Jorge Start time Last Medication Dose Route Stop Time Status Admin Acetaminophen 650 MG Q6P PRN 07/01 0245 AC PO Albuterol Sulfate 3 ML TID 07/02 0900 AC 07/03 INH 0843 Albuterol Sulfate 2 PUF Q4-6 PRN 07/01 0215 AC INH Albuterol Sulfate 3 ML Q6 PRN 07/01 0215 AC 07/01 INH 1601 Amlodipine Besylate 10 MG DAILY 07/01 09 AC 07/03 PO 0814 Apixaban 5 MG BID 07/01 2100 AC 07/03 PO 0814 Budesonide/ 2 PUF BID 07/01 09 AC 07/03 Formoterol Fumarate INH 0811 Diltiazem HCl 120 MG BID 07/02 2100 AC 07/03 PO 0819 Diltiazem HCl 60 MG Q8 07/01 2200 DC 07/02 PO 1442 Furosemide 20 MG DAILY 07/03 09 AC 07/03 PO 0814 Hydrochlorothiazide 25 MG DAILY 07/01 0900 DC 07/02 PO 0901 Lisinopril 40 MG DAILY 07/01 0900 AC 07/03 PO 0814 Metoprolol Tartrate 25 MG Q8 06/30 2212 AC 07/03 PO 0550 Tiotropium [place] 1 PUF DAILY 07/01 0900 AC 07/03 INH 0809 Vital Signs & I&O Last 24 Hrs of Vitals and I&O: Vital Signs Date Time Temp Pulse Resp B/P B/P Pulse O2 O2 Flow FiO2 Mean Ox Delivery Rate 07/03 0844 94 Room Air Room Air 07/03 0814 77 138/64 / 0814 77 138/64 / 0650 98.3 80 20 118/70 95 Room Air 07/03 0550 83 104/84 08/ 0549 83 104/84 07/03 0242 94 Room Air 07/03 0000 Room Air 07/02 2213 98.3 88 20 136/74 97 Room Air 07/02 2202 94 Room Air Room Air 07/02 2129 98 112/80 07/02 1701 92 Room Air Room Air 07/02 1600 Room Air 07/02 1449 97.9 119 20 134/70 95 Room Air 07/02 1442 125 134/70 07/02 1441 125 07/02 0901 120/76 Intake & Output 07/03 1600 07/03 0800 07/03 0000 Intake Total 120 350 Output Total Balance 120 350 Intake, Oral 120 350 Number 1 Bowel Movements Patient 348 lb Weight Weight Bed scale Measurement Method Room air oxygen saturation 94-95% of his chest shows clear lung gaitan cardiac exam shows regular S1 and S2 without murmurs extremities continue to have significant edema Impression/Plan Impression/Plan Impression/Plan: 63-year-old gentleman presents with atrial fibrillation increased shortness of breath secondary to severe cardiomyopathy and elevated BNP Recommendations: Continue negative fluid balance with improved creatinine. Await decision regarding further evaluation of cardiomyopathy. Outpatient sleep study
[2018-07-03] MEDS ORDERED: ELIQUIS5 M1 PO (13:00)
--- NOTE | 2018-07-03 13:07 | Patient Discharge Instructions ---
Discharge Instructions General Discharge Information You were seen/treated for: New onset Atrial fibrillation , CHF You had these procedures: Echocardiogram, v/q scan, Watch for these problems: increased SOB, chest pain. Special Instructions: Follow-up with Dr. Arce and cardiac rehabilitation clinic outpatient within 1 week of discharge Diet Continue normal diet: No Recommended Diet: Heart Healthy, Regular no added salt Limit DAILY fluid amt to mls: 500 Additional DIET Information: Restrict fluids intake Activity Full Activity/No Limits: No (as tolerated) Activity Self Limited: No Acute Coronary Syndrome Inclusion Criteria At DC or during hospital stay patient has or had the following: ACS DIAGNOSIS No Discharge Core Measures Meds if any: Prescribed or Continued at Discharge STEVE/ARB if EF <40% Yes Aspirin No Beta-Alexey Yes Meds if any: NOT Prescribed or Continued at Discharge Congestive Heart Failure Inclusion Criteria At DC or during hospital stay patient has or had the following: CHF DIAGNOSIS Yes Discharge Core Measures Meds if any: Prescribed or Continued at Discharge STEVE/ARB for EF <40% Yes Meds if any: NOT Prescribed or Continued at Discharge Cerebrovascular accident Inclusion Criteria At DC or during hospital stay patient has or had the following: CVA/TIA Diagnosis No Discharge Core Measures Meds if any: Prescribed or Continued at Discharge Antithrombotic Yes Statin (required if LDL =>70) No Anticoagulant Yes Meds if any: NOT Prescribed or Continued at Discharge Venous thromboembolism Inclusion Criteria VTE Diagnosis No VTE Type NONE VTE Confirmed by (Test) NONE Discharge Core Measures - Per Current guidelines, there needs to be overlap - treatment for the first 5 days of Warfarin therapy. - If discharged on Warfarin prior to 5 days of - overlap therapy, the patient will need to be - assessed for post discharge needs including - *Post discharge parental anticoagulation - *Warfarin and/or parental anticoagulation education - *Follow up date to check INR post discharge At least 5 days overlap therapy as Inpatient No Why was Parental Med stopped Increased risk, bleeding Meds if any: Prescribed or Continued at Discharge Note: Overlap Therapy is Warfarin and Anticoagulant Meds if any: NOT Prescribed or Continued at Discharge
--- NOTE | 2018-07-03 13:45 | Discharge Summary ---
Visit Information Visit Dates Admission Date: 06/30/18 Discharge Date: 07/06/18 Hospital Course Course Attending Physician: Shantal CALLEJAS,Tania Li Primary Care Physician: Lauri Montano APRN Consulting Request: 1 Consulting Specialty: Pulmonary Disease Consulting Request: 2 Consulting Specialty: Cardiology Consulting Physician: DR. Delgadillo Reason for Consult: A fib with CHF Hospital Course: 63 year old man with past medical history of hypertension, asthma, COPD, obesity , renal mass, EtOH abuse, CKD, and TOM not on CPAP seen for evaluation of shortness of breath. He went to an urgent care center for evaluation of this and was found to be tachycardic for which EMS was called and he was transferred to the [facility] ED. Patient receive 10 mg of IV cardizem, 40 mg of IV lasix, duoneb, and started on oral metoprolol. He denied feeling any better despite these inteventions and is complaining of the same level of shortness of breath. Labs / Imaging / Studies -CBC: WBC 9.5, Hgb 11.7, Hct 36.4, Plt 230 -BMP: Na 140, K 4.3, Cl 107, CO2 20, BUN 23, Cr 1.5, AG 12, Glu 114 -LFT: WNL -Misc: Mg 1.7, Trop I 0.01, BNP 2900, TSH 2.9, T4 1.39, INR 1.14 -Echo 05/13/14: LVEF 55% with mild/moderate LVH, moderate/severe Left atrial dilation -EKG: Atrial fibrillation with rapid ventricular response -CXR: * Limited examination secondary to patient positioning and low lung volumes. There is the appearance of an increase in the cardiac silhouette since the prior exam, though this may be accentuated due to technique and low lung volumes. There is nonspecific bibasilar airspace disease. New Rapid Afib - patient was then started on heparin IV drip, metoprolol 25 mg po 8th hourly and, Cardizem 5 mL/h which was then eventually changed to Cardizem 120mg BID for rate control and oral eliquis. New acute systolic heart failure - Patient continued to feel short of breath, hence Lasix 40 mg was continued with close monitoring of Renal functions. ANd Digoxin 0.125mg was added for very low EF(25%). Patient was then evaluated for Life vest and discharged with a Life vest. Allergies: Coded Allergies: Penicillins (Intermediate, Hives 07/08/17) Pertinent Lab Results: Labs / Imaging / Studies -CBC: WBC 9.5, Hgb 11.7, Hct 36.4, Plt 230 -BMP: Na 140, K 4.3, Cl 107, CO2 20, BUN 23, Cr 1.5, AG 12, Glu 114 -LFT: WNL -Misc: Mg 1.7, Trop I 0.01, BNP 2900, TSH 2.9, T4 1.39, INR 1.14 -Echo 05/13/14: LVEF 55% with mild/moderate LVH, moderate/severe Left atrial dilation -EKG: Atrial fibrillation with rapid ventricular response -CXR: * Limited examination secondary to patient positioning and low lung volumes. There is the appearance of an increase in the cardiac silhouette since the prior exam, though this may be accentuated due to technique and low lung volumes. There is nonspecific bibasilar airspace disease. Disposition Summary Disposition Principal Diagnosis: Atrial fibrillation with congestive heart failure, acute systolic Additional Diagnosis: Obstructive sleep apnea, morbid obesity Discharge Disposition: home or self care Discharge Instructions General Discharge Information Code Status: Full Code Patient's Diet: Heart healthy diet, decreased salt diet Patient's Activity: As tolerated Follow-Up Instructions/Appts: Follow-up with cardiac rehabilitation clinic within 1 week of discharge outpatyient SLeep study as per pulmonology. follow up with PCP Follow up with Cardiology Medications at Discharge Discharge Medications: Stop taking the following medications: Lisinopril/Hydrochlorothiazide (Lisinopril-Hctz 20-12.5 MG Tab) 20 MG-12.5 MG TABLET ORAL DAILY Amlodipine Besylate (Amlodipine Besylate) 10 MG TABLET DAILY Continue taking these medications: Albuterol Sulfate (Proair Hfa) 90 MCG HFA.AER.AD 2 PUFF ORAL EVERY 4-6 HOURS as needed for SHORTNESS OF BREATH Comments: Last Taken: 07/04/18 Time: 9:00 PM Albuterol Sulfate (Albuterol Sulfate) 2.5 MG/3 ML (0.083 %) VIAL.NEB 1 VIAL EVERY SIX HOURS as needed for LUNG Comments: Last Taken: 07/06/18 Time: 4:15 PM Tiotropium [place] (Spiriva) 18 MCG CAP.W.DEV 1 Capsule Inhale through mouth DAILY Comments: Last Taken: 07/06/18 Time: 8:30 AM Budesonide/Formoterol Fumarate (Symbicort 160-4.5 Mcg Inhaler) 160 MCG-4.5 MCG/ ACTUATION HFA.AER.AD 2 Puff Inhale through mouth TWICE DAILY Days = 30 Comments: Last Taken: 07/06/18 Time: 8:30 AM Start taking the following new medications: Apixaban (Eliquis) 5 MG TABLET 5 Milligram ORAL TWICE DAILY Qty = 60 No Refills Comments: Last Taken: 07/06/18 Time: 8:30 AM Digoxin (Lanoxin) 125 MCG TABLET 1 Tablet ORAL DAILY Qty = 30 No Refills Comments: Last Taken: 07/06/18 Time: 4:00 PM Diltiazem HCl (Diltiazem 12HR ER) 120 MG CAP.ER.12H 1 Tablet ORAL TWICE DAILY Qty = 60 No Refills Comments: Last Taken: 07/06/18 Time: 8:30 AM Furosemide (Lasix) 40 MG TABLET 1 Tablet ORAL DAILY Qty = 30 No Refills Comments: Last Taken: 07/06/18 Time: 8:30 AM Lisinopril (Lisinopril) 40 MG TABLET 1 Tablet ORAL DAILY Qty = 30 No Refills Comments: Last Taken: 07/06/18 Time: 8:30 AM Metoprolol Tartrate (Metoprolol Tartrate) 25 MG TABLET 1 Tablet ORAL EVERY 8 HOURS Qty = 90 No Refills Comments: Last Taken: 07/06/18 Time: 1:15 PM Copies To: Enrique CALLEJAS,Alejo Morales; Sheri Montano APRN, MD PHD,Alejo Dozier
[2018-07-03 14:34] VITALS: BP 126/92
--- NOTE | 2018-07-03 18:24 | PN- Cardiology ---
Subjective Subjective: * Breathing is improved. * Atrial fibrillation with improved heart rate. * creatinine is 1.3 Objective Vital Signs and I&Os Vital Signs Date Time Temp Pulse Resp B/P B/P Pulse O2 O2 Flow FiO2 Mean Ox Delivery Rate 07/03 1800 94 Room Air 07/03 1434 98.1 87 20 126/92 94 Room Air 07/03 1411 102 124/78 08/ 0844 94 Room Air Room Air 07/03 0814 77 138/64 08 0814 77 138/64 07/03 0800 Room Air Room Air 07/03 0650 98.3 80 20 118/70 95 Room Air 07/03 0550 83 104/84 07/03 0549 83 104/84 07/03 0242 94 Room Air 07/03 0000 Room Air 07/02 2213 98.3 88 20 136/74 97 Room Air 07/02 2202 94 Room Air Room Air 07/02 2129 98 112/80 Intake & Output 07/03 1600 07/03 0800 07/03 0000 07/02 1600 07/02 0800 07/02 0000 Intake Total 510 120 350 480 120 150 Output Total 625 Balance -115 120 350 480 120 150 Intake, IV 10 Intake, Oral 500 120 350 480 120 150 Number 1 Bowel Movements Output, Urine 625 Patient 348 lb 351 lb Weight Weight Bed scale Bed scale Measurement Method Physical Exam: General: WD/WN obses male in NAD; alert and oriented x 3 HEENT: NC/AT, PERRL, EOMI Neck: no JVD, no carotid bruit Heart: irregularly irregular without murmur Lungs: decreased air movement bilaterally, no crackles or wheezing Abdomen: soft, NT, +ve bowel sounds Extremities: 2+ leg edema with venous stasis changes Assessment/Plan Assessment/Plan * This patient has shortness of breath that is likely multifactorial and due to COPD, obesity, restrictive lung disease from his centripetal obesity, atrial fibrillation and a low EF. He has evidence of a cardiomyopathy that may be related to tachycardia from atrial fibrillation although ischemia needs to be ruled out. This atrial fibrillation is likely precipitated by either hypertension or increased RV pressures from his TOM. He should be on CPAP but does not like using it. * Continue Eliquis 5mg PO BID * Continue Lasix 20mg daily. Increase Cardizem to 120mg BID for rate control. * Add digoxin 0.125mg daily. * This patient will be evaluated for a Life Vest tomorrow. Continue telemetry? Yes
[2018-07-03 22:29] VITALS: BP 138/80
--- NOTE | 2018-07-04 03:45 | RADIOLOGY REPORT ---
EXAMINATION: XR PORTABLE CHEST CLINICAL INFORMATION: 63-year-old male patient with shortness of breath and tachypnea. Hypoxia. COMPARISON: Portable chest x-ray done 06/30/2018. TECHNIQUE: Portable AP semierect view of the chest was obtained. FINDINGS: The heart remains enlarged. Confluent opacity involving both lower lobes is thought to represent bibasilar edema. There may well be associated pleural effusions. IMPRESSION: Enlarged heart. Bibasilar edema. Effusions.
--- NOTE | 2018-07-04 05:40 | PN- Housestaff ---
Roman Gaston 07/04/18 0540: Subjective Follow-up For: Atrial fibrillation and CHF Complaints: pain scale (0-10) (sob) Tele-Events Since Last Visit: None Subjective: Patient complaint of shortness of breath in the middle of the night due to cleansing chemicals . and required oxygen nasal cannula. No history of chest pain. No other complaints Review of Systems Constitutional: Reports: see HPI. Objective Last 24 Hrs of Vital Signs/I&O Vital Signs Date Time Temp Pulse Resp B/P B/P Pulse O2 O2 Flow FiO2 Mean Ox Delivery Rate 07/04 0853 90 126/80 07/04 0853 90 126/80 07/04 0800 Nasal 2.0L Cannula 07/04 0637 97.4 90 20 126/80 97 07/04 0223 85 Room Air 07/03 2229 98.3 92 22 138/80 96 / 2132 Room Air 07/03 2123 87 126/92 07/03 2046 Room Air 07/03 1800 94 Room Air 07/03 1434 98.1 87 20 126/92 94 Room Air 07/03 1411 102 124/78 Intake & Output 07/04 1600 07/04 0800 07/04 0000 Intake Total 320 180 Output Total 400 Balance -80 180 Intake, Oral 320 180 Output, Urine 400 Physical Exam General Appearance: Alert, Oriented X3, Cooperative, No Acute Distress Cardiovascular: Regular Rate, No Murmurs Lungs: Clear to Auscultation, Normal Air Movement Abdomen: Normal Bowel Sounds, Soft, No Tenderness, No Hepatospenomegaly, No Masses Neurological: Normal Speech, Strength at 5/5 X4 Ext, Normal Tone, Sensation Intact Extremities: No Clubbing, No Cyanosis, No Edema, Normal Pulses, No Tenderness/ Swelling Current Medications: Current Medications Sig/Jorge Start time Last Medication Dose Route Stop Time Status Admin Acetaminophen 650 MG Q6P PRN 07/01 0245 AC PO Albuterol Sulfate 3 ML TID 07/02 900 AC 07/04 INH 0854 Albuterol Sulfate 2 PUF Q4-6 PRN 07/01 021 AC INH Albuterol Sulfate 3 ML Q6 PRN 07/01 0215 AC 07/04 INH 0218 Amlodipine Besylate 5 MG DAILY 07/04 900 AC 07/04 PO 0853 Amlodipine Besylate 10 MG DAILY 07/01 09 DC 07/03 PO 0814 Apixaban 5 MG BID 07/01 2100 AC 07/04 PO 0853 Budesonide/ 2 PUF BID 07/01 09 AC 07/04 Formoterol Fumarate INH 1007 Digoxin 0.125 MG 1700 07/03 2030 AC 07/03 PO 2122 Diltiazem HCl 120 MG BID 07/02 2100 AC 07/04 PO 0853 Furosemide 40 MG DAILY 07/04 900 DC PO Furosemide 20 MG DAILY 07/04 900 DC PO Furosemide 40 MG DAILY 07/04 900 AC 07/04 PO 0853 Lisinopril 40 MG DAILY 07/01 900 AC 07/04 PO 0853 Metoprolol Tartrate 25 MG Q8 06/30 2212 AC 07/04 PO 0634 Tiotropium [place] 1 PUF DAILY 07/01 900 AC 07/04 INH 1007 Last 24 Hrs of Lab/Russell Results Last 24 Hrs of Labs/Mics: Laboratory Tests 07/04/18 0615: Anion Gap 10, Estimated GFR 55 L, BUN/Creatinine Ratio 14.6 Assessment/Plan Assessment: Patient is a 63-year-old male, who came to the ED with complaints of shortness of breath for the past month. He was found to have atrial fibrillation on EKG with a rapid ventricular rate. He also has lower extremity edema. He was treated with furosemide 20 mg, IV heparin, Cardizem 5 mL/h and metoprolol 25 mg. He also received total respiratory care, Problem List: 1. CHF (congestive heart failure) Patient is a 63-year-old male, who came to the ED with complaints of shortness of breath for the past month dx with atrial fibrillation on EKG with a rapid ventricular rate. He also has lower extremity edema He was treated with furosemide, IV heparin, Cardizem 5 mL/h and metoprolol 25 mg . Continue negative fluid balance. Patient felt breathless last night , saturation dropped to 89% and required oxygen 3l Nasal Cannula Dr. Arce advised in his cardiology consult yesterday to switch hydrochlorothiazide to Lasix and he will likely needed a higher dose of Lasix . So he is on Lasix 40 mg per oral, STEVE inhibitors, beta-luis enrique and Digoxin 0.125mg, and amlodipine 5mg CXR- Enlarged heart. Bibasilar edema. Effusions. Evaluate for life vest Post discharge cardiac rehabilitation outpatient advised. Outpatient follow-up for sleep apnea evaluation and management advised. 2. New onset a-fib Continue Cardizem, metoprolol, Eliquis 3. Dyspnea -Pulmonology jodee d PFT showed only a mild obstructive lung disease -outpatient sleep styudy advised Continue Symbicort and albuterol 4. TOM (obstructive sleep apnea) Advised outpatient sleep study Problem List: 1. CHF (congestive heart failure) 2. New onset a-fib 3. TOM (obstructive sleep apnea) Pain Ratin Pain Location: none Pain Goal: Remain pain free Pain Plan: tyelenol Tomorrow's Labs & Rationales: none Consulting Request: Consulting Specialty: Cardiology Tania Murguia MD 07/04/18 1101: Attending MD Review Statement Attending Statement Attending MD Statement: examined this patient, discuss w/resident/PA/LIVING SKILLS ADVISOR, agreed w/resident/PA/LIVING SKILLS ADVISOR, reviewed EMR data (avail), discussed with nursing, discussed with case mgmt, reviewed images Attending Assessment/Plan: Patient is back on oxygen. He is a 63-year-old male with morbid obesity, previous history of COPD who is here with new onset atrial fibrillation and acute systolic heart failure. We are treating him with a beta-luis enrique, Lasix, Eliquis, STEVE inhibitor and Dr. Arce added dig yesterday. I think that he needs more aggressive diuresis and I will cut back his dose of Norvasc and increase his dose of Lasix. Dr. Feng is also having him evaluated for a LifeVest given his low EF.
[2018-07-04 06:37] VITALS: BP 126/80
[2018-07-04 14:04] VITALS: BP 130/76
--- NOTE | 2018-07-04 17:06 | PN- Cardiology ---
Subjective Subjective: * This patient continues to complain of some shortness of breath. * atrial fibrillation with good rate control. * creatinine 1.3 * enlarge heart of chest X-ray Objective Vital Signs and I&Os Vital Signs Date Time Temp Pulse Resp B/P B/P Pulse O2 O2 Flow FiO2 Mean Ox Delivery Rate 07/04 1603 87 130/76 / 1603 87 130/76 / 1404 98.2 87 20 130/76 96 Room Air 07/04 0855 96 Nasal 2.0L Cannula 07/04 0853 90 126/80 / 0853 90 126/80 / 0800 Nasal 2.0L Cannula 07/04 0637 97.4 90 20 126/80 97 / 0223 85 Room Air 07/03 2229 98.3 92 22 138/80 96 07/03 2132 Room Air 07/03 2123 87 126/92 07/03 2046 Room Air 07/03 1800 94 Room Air Intake & Output 07/04 1600 07/04 0807/04 0000 07/03 1600 07/03 0800 07/03 0000 Intake Total 320 180 510 120 350 Output Total 400 625 Balance -80 180 -115 120 350 Intake, IV 10 Intake, Oral 320 180 500 120 350 Number 1 Bowel Movements Output, Urine 400 625 Patient 348 lb Weight Weight Bed scale Measurement Method Physical Exam: General: WD/WN obses male in NAD; alert and oriented x 3 HEENT: NC/AT, PERRL, EOMI Neck: no JVD, no carotid bruit Heart: irregularly irregular without murmur Lungs: decreased air movement bilaterally, no crackles or wheezing Abdomen: soft, NT, +ve bowel sounds Extremities: 2+ leg edema with venous stasis changes Assessment/Plan Assessment/Plan * This patient has shortness of breath that is likely multifactorial and due to COPD, obesity, restrictive lung disease from his centripetal obesity, atrial fibrillation and a low EF. He has evidence of a cardiomyopathy that may be related to tachycardia from atrial fibrillation although ischemia needs to be ruled out. This atrial fibrillation is likely precipitated by either hypertension or increased RV pressures from his TOM. He should be on CPAP but does not like using it. * Continue Eliquis 5mg PO BID * Continue Lasix 40mg daily. Increase Cardizem to 120mg BID for rate control. Stop Amlodipine. * Continue digoxin 0.125mg daily. * This patient may be discharged to home tomorrow if fitted with his Life Vest. Follow up in the office in one week. Continue telemetry? Yes
[2018-07-04 22:53] VITALS: BP 120/76
[2018-07-04 22:56] VITALS: BP 128/74
[2018-07-05 06:56] VITALS: BP 128/80
--- NOTE | 2018-07-05 10:17 | PN- Housestaff ---
Subjective Follow-up For: SOB, New Afib with RVR Tele-Events Since Last Visit: Afib 77 - 103 (last 24 hrs) Subjective: Pt was seen and examined in his room. No acute events overnight per nursing. Pt feeling better. Pt denies headahce, fever, chills, palpitations, chest pain, sob , abdominal pain, n/v/d. Patient has no complaints otherwise. Pt is waiting for life vest. Review of Systems Constitutional: Reports: see HPI. Objective Last 24 Hrs of Vital Signs/I&O Vital Signs Date Time Temp Pulse Resp B/P B/P Pulse O2 O2 Flow FiO2 Mean Ox Delivery Rate 07/06 0820 82 138/80 08/05 0820 82 136/80 08/05 0710 97.7 70 22 128/88 92 08/05 0640 82 136/84 08/04 2204 98.2 88 24 128/82 94 08/04 2045 Room Air 08/04 2033 78 146/90 08/04 1928 95 Room Air 08/04 1714 98.1 80 20 146/90 08/04 1450 98.1 80 20 146/90 95 Room Air 08/04 1328 82 130/78 08/04 1244 96 Room Air 08/04 1012 80 132/80 08/04 1011 98.0 80 16 132/80 Intake & Output / 1600 08/ 0800 08/ 0000 Intake Total 280 120 Output Total 750 Balance -470 120 Intake, Oral 280 120 Output, Urine 750 Patient 343 lb Weight Physical Exam General Appearance: Alert, Oriented X3, Cooperative, No Acute Distress Skin Temp/Moisture Exam: Warm/Dry Sepsis Skin Exam (color): Normal for Ethnicity HEENT: Atraumatic Neck: Supple Cardiovascular: Normal S1, Normal S2, Irregular Lungs: Clear to Auscultation Abdomen: Normal Bowel Sounds, Soft, No Tenderness Extremities: No Edema Current Medications: Current Medications Sig/Jorge Start time Last Medication Dose Route Stop Time Status Admin Acetaminophen 650 MG Q6P PRN 07/01 0245 AC PO Albuterol Sulfate 3 ML TID 07/02 0900 AC 07/06 INH 1151 Albuterol Sulfate 2 PUF Q4-6 PRN 07/01 0215 AC 07/04 INH 205 Albuterol Sulfate 3 ML Q6 PRN 07/01 0215 AC 07/04 INH 0218 Amlodipine Besylate 5 MG DAILY 07/04 09 AC 07/06 PO 0820 Apixaban 5 MG BID 07/01 2100 AC 07/06 PO 0820 Budesonide/ 2 PUF BID 07/01 09 AC 07/06 Formoterol Fumarate INH 0821 Digoxin 0.125 MG 1700 07/03 2030 AC 07/05 PO 1714 Diltiazem HCl 120 MG BID 07/02 2100 AC 07/06 PO 0821 Furosemide 40 MG DAILY 07/04 900 AC 07/06 PO 0820 Lisinopril 40 MG DAILY 07/01 09 AC 07/06 PO 0820 Metoprolol Tartrate 25 MG Q8 06/30 2212 AC 07/06 PO 1318 Tiotropium [place] 1 PUF DAILY 07/01 900 AC 07/06 INH 0821 Assessment/Plan Assessment: 63 y/o M with pmh sig for morbid obesity, previous history of COPD who is here with new onset atrial fibrillation and acute systolic heart failure (EF <25%). 1. Nonischemic cardiomyopthy, LVEF 25% 2. New onset Afib 3. Dyspnea 4. TOM - Continue current cardiac medications as per cardiology - LifeVest order to be placed for prevention of sudden cardiac Problem List: 1. TOM (obstructive sleep apnea) 2. Dyspnea 3. CHF (congestive heart failure) 4. New onset a-fib Pain Ratin Pain Location: None Pain Goal: Remain pain free Pain Plan: Tylenol Tomorrow's Labs & Rationales: BEP Consulting Request: Consulting Specialty: Cardiology
[2018-07-05] MEDS ORDERED: LISINOPRIL20 M1 PO (10:37)
[2018-07-05] MEDS ORDERED: DILTIAZEM 12HR120 MG PO (10:37)
[2018-07-05] MEDS ORDERED: LANOXIN125 MCG PO (10:37)
[2018-07-05] MEDS ORDERED: LASIX40 M1 PO (10:37)
[2018-07-05] MEDS ORDERED: ELIQUIS5 M1 PO (10:42)
--- NOTE | 2018-07-05 11:39 | PN- Cardiology ---
Subjective Subjective: Feeling better. No chest pain. No palpitations. No diaphoresis. He remains in atrial fibrillation with rate under control Objective Vital Signs and I&Os Vital Signs Date Time Temp Pulse Resp B/P B/P Pulse O2 O2 Flow FiO2 Mean Ox Delivery Rate 07/05 1012 80 132/80 08/ 1011 98.0 80 16 132/80 / 0656 97.8 84 18 128/80 95 Room Air / 0100 93 Room Air 07/05 0000 Room Air 07/04 2256 98.1 92 18 128/74 94 Room Air / 2253 97.4 98 18 120/76 96 Nasal Cannula 07/04 2052 94 120/80 / 1850 95 Room Air / 1603 87 130/76 07/04 1603 87 130/76 / 1600 Room Air 07/04 1404 98.2 87 20 130/76 96 Room Air Intake & Output 07/05 1600 / 0800 08/04 0000 /03 1600 07/04 0800 07/04 0000 Intake Total 380 480 320 180 Output Total 750 400 Balance -370 480 -80 180 Intake, Oral 380 480 320 180 Output, Urine 750 400 Patient 342 lb Weight Weight Bed scale Measurement Method Physical Exam: Gen: NAD HEENT: normal Lungs: clear to auscultation, normal resp. effort Heart: Irregularly irregular, S1, S2, no murmurs Abdomen: Soft, nontender, no masses Extremities: No clubbing, cyanosis, or edema. Neuro: Alert and oriented x 3, cranial nerves intact Current Medications: Current Medications Sig/Jorge Start time Last Medication Dose Route Stop Time Status Admin Acetaminophen 650 MG Q6P PRN 07/01 0245 AC PO Albuterol Sulfate 3 ML TID 07/02 900 AC 07/05 INH 0557 Albuterol Sulfate 2 PUF Q4-6 PRN 07/01 021 AC 07/04 INH 205 Albuterol Sulfate 3 ML Q6 PRN 07/01 021 AC 07/04 INH 0218 Amlodipine Besylate 5 MG DAILY 07/04 900 AC 07/05 PO 1012 Apixaban 5 MG BID 07/01 2100 AC 07/05 PO 1012 Budesonide/ 2 PUF BID 07/01 900 AC 07/05 Formoterol Fumarate INH 101 Digoxin 0.125 MG 1700 07/03 2030 AC 07/04 PO 1603 Diltiazem HCl 120 MG BID 07/02 2100 AC 07/05 PO 1012 Furosemide 40 MG DAILY 07/04 09 AC 07/05 PO 1012 Lisinopril 40 MG DAILY 07/01 09 AC 07/05 PO 1011 Metoprolol Tartrate 25 MG Q8 06/30 2212 AC 07/05 PO 0616 Patient Medication 1 ED ONE ONE 07/04 1515 DC Teaching ED 07/04 1516 Tiotropium [place] 1 PUF DAILY 07/01 900 AC 07/05 INH 1012 Results Last 48 Hrs of Labs/Mics: Laboratory Tests 07/05/18 0626: Anion Gap 7, Estimated GFR 55 L, BUN/Creatinine Ratio 13.1, Phosphorus 4.4, Magnesium 2.1 07/04/18 0615: Anion Gap 10, Estimated GFR 55 L, BUN/Creatinine Ratio 14.6 Recent Imaging Studies: Echocardiogram 07/02/18: 1. Moderate to severely decreased EF of 25% with regional wall motion abnormalities as described above. 2. Moderate left ventricular hypertrophy. 3. Mild right atrial enlargement. Markedly enlarged left atrium. 4. Mild to moderate mitral regurgitation. 5. Mild tricuspid regurgitation. 6. Mild aortic stenosis. 7. Mild pulmonary hypertension. 8. Small pericardial effusion. Assessment/Plan Assessment/Plan Assessment: 1. Nonischemic cardiomyopathy, LVEF 25%. 2. Atrial fibrillation 3. COPD Plan: * Continue current cardiac medications. * LifeVest will be placed for prevention of sudden cardiac given the nonischemic cardiomyopathy with LVEF 25% Continue telemetry? Yes
--- NOTE | 2018-07-05 13:06 | PN- Att Addend ---
Attending Addendum Attending Brief Note Patient seen and examined, denies any complaints. Denies any shortness of breath just feels tired. Patient is to be evaluated for LifeVest. Vital Signs Date Time Temp Pulse Resp B/P B/P Pulse O2 O2 Flow FiO2 Mean Ox Delivery Rate 07/05 1244 96 Room Air 07/05 1012 80 132/80 07/05 1011 98.0 80 16 132/80 07/05 0656 97.8 84 18 128/80 95 Room Air 07/05 0100 93 Room Air 07/05 0000 Room Air 07/04 2256 98.1 92 18 128/74 94 Room Air 07/04 2253 97.4 98 18 120/76 96 Nasal Cannula 07/04 2052 94 120/80 07/04 1850 95 Room Air 07/04 1603 87 130/76 07/04 1603 87 130/76 07/04 1600 Room Air 07/04 1404 98.2 87 20 130/76 96 Room Air on exam; aox3, nad. cv; s1,s2, irregular. resp; clear abd; soft, nt, bs+ ext; no edema Laboratory Tests 07/05 06 Chemistry Sodium (137 - 145 mmol/L) 139 Potassium (3.5 - 5.1 mmol/L) 4.0 Chloride (98 - 107 mmol/L) 105 Carbon Dioxide (22 - 30 mmol/L) 27 Anion Gap (5 - 16) 7 BUN (9 - 20 mg/dL) 17 Creatinine (0.7 - 1.2 mg/dL) 1.3 H Estimated GFR (>60 ml/min) 55 L BUN/Creatinine Ratio (7 - 25 %) 13.1 Phosphorus (2.5 - 4.5 mg/dL) 4.4 Magnesium (1.6 - 2.3 mg/dL) 2.1 A/P; 63 y/o M with pmh sig for morbid obesity, previous history of COPD who is here with new onset atrial fibrillation and acute systolic heart failure, nonischemic cardiomyopathy with ejection fraction less than 25%. At this point patient has been treated with diuretics, calcium channel luis enrique, digoxin, STEVE inhibitor. He has also been kept on Eliquis for anticoagulation. Patient will need to be evaluated for LifeVest. Once the LifeVest is arranged and patient has it and he can likely be discharged home. 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
[2018-07-05] MEDS ORDERED: METOPROLOL TART25 M1 PO (13:51)
[2018-07-05] MEDS ORDERED: LISINOPRIL40 M1 PO (13:51)
[2018-07-05 14:50] VITALS: BP 146/90
[2018-07-05 22:04] VITALS: BP 128/82
--- NOTE | 2018-07-06 06:40 | PN- Housestaff ---
Roman Gaston 07/06/18 0640: Subjective Follow-up For: Atrial fibrillation Complaints: no complaints Subjective: Patient is doing well ,no shortness of breath, no chest pain is waiting regarding for the LifeVest. Review of Systems Constitutional: Reports: see HPI. Objective Last 24 Hrs of Vital Signs/I&O Vital Signs Date Time Temp Pulse Resp B/P B/P Pulse O2 O2 Flow FiO2 Mean Ox Delivery Rate 07/06 1614 96 Room Air Room Air 07/06 1553 81 122/80 07/06 1428 98.3 96 22 134/72 94 Room Air 07/06 1318 82 120/80 / 0820 82 138/80 / 0820 82 136/80 / 0800 Room Air 07/06 0710 97.7 70 22 128/88 92 / 0640 82 136/84 / 2204 98.2 88 24 128/82 94 / 2045 Room Air 07/05 2033 78 146/90 07/05 1928 95 Room Air Intake & Output 07/06 1600 07/06 0807/06 0000 Intake Total 780 280 120 Output Total 750 Balance 780 -470 120 Intake, Oral 780 280 120 Output, Urine 750 Patient 343 lb Weight Physical Exam General Appearance: Alert, Oriented X3, Cooperative, No Acute Distress Cardiovascular: Regular Rate, No Murmurs Lungs: Clear to Auscultation, Normal Air Movement Abdomen: Normal Bowel Sounds, Soft, No Tenderness, No Hepatospenomegaly, No Masses Neurological: Normal Speech, Strength at 5/5 X4 Ext, Normal Tone, Sensation Intact Extremities: edema Current Medications: Current Medications Sig/Jorge Start time Last Medication Dose Route Stop Time Status Admin Acetaminophen 650 MG Q6P PRN 07/01 0245 AC PO Albuterol Sulfate 3 ML TID 07/02 900 AC 07/06 INH 1614 Albuterol Sulfate 2 PUF Q4-6 PRN 07/01 215 AC 07/04 INH 205 Albuterol Sulfate 3 ML Q6 PRN 07/01 021 AC 07/04 INH 021 Amlodipine Besylate 5 MG DAILY 07/04 900 AC 07/06 PO 0820 Apixaban 5 MG BID 07/01 2100 AC 07/06 PO 0820 Budesonide/ 2 PUF BID 07/01 09 AC 07/06 Formoterol Fumarate INH 0821 Digoxin 0.125 MG 1700 07/03 2030 AC 07/06 PO 1553 Diltiazem HCl 120 MG BID 07/02 2100 AC 07/06 PO 0821 Furosemide 40 MG DAILY 07/04 09 AC 07/06 PO 0820 Lisinopril 40 MG DAILY 07/01 0900 AC 07/06 PO 0820 Metoprolol Tartrate 25 MG Q8 06/30 2212 AC 07/06 PO 1318 Tiotropium [place] 1 PUF DAILY 07/01 09 AC 07/06 INH 0821 Assessment/Plan Assessment: Continue cardiac medications LifeVest will be placed for prevention of sudden cardiac , LifeVest patient relations representative demonstrated the use of device and explained the precautionary measures to be taken by the patient. The patient agreed to use the device as explained and will follow-up as mentioned below. LVEF 25% Can be discharged as per cardiology consult by Dr. Sanz Follow-up with Dr. Arce and with PCP in 1 week\ Problem List: 1. New onset a-fib 2. CHF (congestive heart failure) Pain Ratin Pain Location: None Pain Goal: Remain pain free Pain Plan: None Tomorrow's Labs & Rationales: None Consulting Request: Consulting Specialty: Cardiology Ruth Ann Macias MD 07/06/18 1230: Attending MD Review Statement Attending Statement Attending MD Statement: examined this patient, discuss w/resident/PA/FORESTER AIDE, agreed w/resident/PA/FORESTER AIDE, reviewed EMR data (avail), discussed with nursing, discussed with case mgmt, reviewed images, amended to note Attending Assessment/Plan: Patient seen and examined, offers no complaints. Denies any shortness of breath or chest pain. Patient remains in A. fib. Patient is awaiting for the LifeVest. Vital Signs Date Time Temp Pulse Resp B/P B/P Pulse O2 O2 Flow FiO2 Mean Ox Delivery Rate 07/06 820 82 138/80 07/06 820 82 136/80 07/06 08 Room Air 07/06 0710 97.7 70 22 128/88 92 / 0640 82 136/84 07/05 2204 98.2 88 24 128/82 94 07/05 2045 Room Air 07/05 2033 78 146/90 07/05 1928 95 Room Air 07/05 1714 98.1 80 20 146/90 07/05 1450 98.1 80 20 146/90 95 Room Air 07/05 1328 82 130/78 07/05 1244 96 Room Air On exam: aox3, nad. cv; s1,s2, irregular. resp; clear abd; soft, nt, bs+ ext; no edema No labs. A/P: 63 y/o M with pmh sig for morbid obesity, previous history of COPD who is here with new onset atrial fibrillation and acute systolic heart failure, nonischemic cardiomyopathy with ejection fraction less than 25%. Patient awaiting [facility]. Once that is what I did, patient can be discharged home. This was also discussed with cardiology. Continue the rest of the management. Patient to follow with infection preventionist as an outpatient.
[2018-07-06 07:10] VITALS: BP 128/88
--- NOTE | 2018-07-06 11:11 | PN- Cardiology ---
Subjective Subjective: The patient reports that he is feeling well. No chest pain. No shortness of breath. No palpitations. No diaphoresis. He remains in atrial fibrillation with controlled ventricular rate. Objective Vital Signs and I&Os Vital Signs Date Time Temp Pulse Resp B/P B/P Pulse O2 O2 Flow FiO2 Mean Ox Delivery Rate 07/06 820 82 138/80 / 0820 82 136/80 / 0800 Room Air 07/06 0710 97.7 70 22 128/88 92 / 0640 82 136/84 / 2204 98.2 88 24 128/82 94 / 2045 Room Air 07/05 2033 78 146/90 07/05 1928 95 Room Air / 1714 98.1 80 20 146/90 08/ 1450 98.1 80 20 146/90 95 Room Air / 1328 82 130/78 / 1244 96 Room Air Intake & Output 07/06 1600 07/06 0807/06 0000 07/05 1600 07/05 0807/05 0000 Intake Total 280 120 860 380 480 Output Total 750 750 Balance -470 120 860 -370 480 Intake, Oral 280 120 860 380 480 Output, Urine 750 750 Patient 343 lb 342 lb 342 lb Weight Weight Bed scale Measurement Method Physical Exam: Gen: NAD HEENT: normal Lungs: clear to auscultation, normal resp. effort Heart: Irregularly irregular, S1, S2, no murmurs Abdomen: Soft, nontender, no masses Extremities: No clubbing, cyanosis, or edema. Neuro: Alert and oriented x 3, cranial nerves intact Current Medications: Current Medications Sig/Jorge Start time Last Medication Dose Route Stop Time Status Admin Acetaminophen 650 MG Q6P PRN 07/01 0245 AC PO Albuterol Sulfate 3 ML TID 07/02 900 AC 07/06 INH 045 Albuterol Sulfate 2 PUF Q4-6 PRN 07/01 215 AC 07/04 INH 2057 Albuterol Sulfate 3 ML Q6 PRN 07/01 215 AC 07/04 INH 217 Amlodipine Besylate 5 MG DAILY 07/04 900 AC 07/06 PO 0820 Apixaban 5 MG BID 07/01 2100 AC 07/06 PO 0820 Budesonide/ 2 PUF BID 07/01 900 AC 08/05 Formoterol Fumarate INH 0821 Digoxin 0.125 MG 1700 07/03 2030 AC 07/05 PO 1714 Diltiazem HCl 120 MG BID 07/02 2100 AC 07/06 PO 0821 Furosemide 40 MG DAILY 07/04 09 AC 07/06 PO 0820 Lisinopril 40 MG DAILY 07/01 0900 AC 07/06 PO 0820 Metoprolol Tartrate 25 MG Q8 06/30 2212 AC 07/06 PO 0640 Tiotropium [place] 1 PUF DAILY 07/01 09 AC 07/06 INH 0821 Results Last 48 Hrs of Labs/Mics: Laboratory Tests 07/05/18 0626: Anion Gap 7, Estimated GFR 55 L, BUN/Creatinine Ratio 13.1, Phosphorus 4.4, Magnesium 2.1 Assessment/Plan Assessment/Plan Assessment: 1. Nonischemic cardiomyopathy, LVEF 25%. 2. Atrial fibrillation 3. COPD Plan: * Continue current cardiac medications. * LifeVest will be placed for prevention of sudden cardiac given the nonischemic cardiomyopathy with LVEF 25% * Continue other cardiac medications * Okay for discharge after placement of life vest. * Follow up with Dr. Arce in 1 week. Continue telemetry? Yes
[2018-07-06 14:28] VITALS: BP 134/72
[2018-07-06 20:38] VITALS: BP 130/74
[2018-07-06] MEDS ORDERED: LASIX40 M1 PO (20:39)
[2018-07-06] MEDS ORDERED: LANOXIN125 MCG PO (20:39)
[2018-07-06] MEDS ORDERED: DILTIAZEM 12HR120 MG PO (20:39)
[2018-07-06] MEDS ORDERED: ELIQUIS5 M1 PO (20:39)
[2018-07-06] MEDS ORDERED: LISINOPRIL40 M1 PO (20:39)
[2018-07-06] MEDS ORDERED: METOPROLOL TART25 M1 PO (20:39)
== END 2018-07-06 20:55 | DRG 308 ==
LOC: ERH 17:45 → 1NO 22:15 → ERHI 22:15 → ENRESERV 07-01 17:58 → ENTRNSPT 07-01 18:48 → EDTRNSPTSTS 07-01 19:16 → EDTRNSPT 07-01 19:16 → 1NO 07-01 19:26 → CMPTRNSPT 07-01 19:34 → 1NO 07-03 21:18
PROVIDERS: Internal Medicine Interventional Cardiology; Physician Assistant; Student in an Organized Health Care Education/Training Program
DX: I48.91 Unspecified atrial fibrillation (principal); I50.21 Acute systolic (congestive) heart failure; Z68.42 Body mass index [BMI] 45.0-49.9, adult; I13.0 Hypertensive heart and chronic kidney disease with heart failure and stage 1 through stage 4 chronic kidney disease, or unspecified chronic kidney disease; Z99.81 Dependence on supplemental oxygen; I42.9 Cardiomyopathy, unspecified; E66.01 Morbid (severe) obesity due to excess calories; J44.9 Chronic obstructive pulmonary disease, unspecified; N18.2 Chronic kidney disease, stage 2 (mild); N28.89 Other specified disorders of kidney and ureter; G47.33 Obstructive sleep apnea (adult) (pediatric); Z91.19 Patient's noncompliance with other medical treatment and regimen; Z90.49 Acquired absence of other specified parts of digestive tract; Z88.0 Allergy status to penicillin
CPT/HCPCS: 1NSP; ERO; 36592; 71045; 78582; 82436; 93005; 93010; 93306; 96374; 96375; 96376; A9540; A9558; J1644; J1940; J3490; J7060